=== PATIENT | male | born 1955 | race Caucasian/White ===

== ENCOUNTER → 2020-03-21 13:48 | Outpatient (CLI) | payer SELFPAY | PROVIDERS: PCP Family Medicine; Referring Provider Family Medicine; Visit Provider Family Medicine | DX: E78.5 Hyperlipidemia, unspecified (principal) | CPT/HCPCS: 36415 ==

== ENCOUNTER → 2020-05-25 13:13 | Outpatient (CLI) | payer SELFPAY | LOC: LAB.FUTURE 13:19 → LAB 13:21 | PROVIDERS: PCP Family Medicine; Visit Provider Family Medicine | DX: Z51.81 Encounter for therapeutic drug level monitoring (principal) | CPT/HCPCS: 36415 ==

== ENCOUNTER → 2020-10-31 14:38 | Outpatient (CLI) | payer MEDICAID, SELFPAY | PROVIDERS: PCP Family Medicine; Referring Provider Family Medicine; Visit Provider Family Medicine | DX: Z00.00 Encounter for general adult medical examination without abnormal findings (principal); R03.0 Elevated blood-pressure reading, without diagnosis of hypertension; E78.5 Hyperlipidemia, unspecified; Z12.5 Encounter for screening for malignant neoplasm of prostate; Z51.81 Encounter for therapeutic drug level monitoring | CPT/HCPCS: 36415 ==

== ENCOUNTER 2020-12-19 20:46 | Observation (INO) | payer MEDICAID, SELFPAY ==
[2020-12-19 20:48] VITALS: BP 135/88; PULSE 70; RESP 14; TEMP 36.8; O2SAT 95; BMI 25.8
--- NOTE | 2020-12-19 21:00 | CT_ITS ---
STUDY: CT ABDOMEN AND PELVIS WITH CONTRAST REASON FOR EXAM: Male, 65 years old. Sudden onset of right-sided abdominal pain. RADIATION DOSAGE (If Supplied By Facility): CTDIvol = ( 13.56 ) mGy, DLP = ( 985.56 ) mGycm TECHNIQUE: Transaxial images were obtained from the dome of the diaphragm to the symphysis pubis without oral contrast. IV 100mL Isovue-300 was administered. Sagittal and coronal images were reconstructed. Individualized dose optimization techniques were used for this CT. COMPARISON: None. FINDINGS: Increased markings at the lung bases suggestive of either atelectasis and/or early infiltrates. Tiny filling defect is seen on the first image of the examination within a vessel in the right lower lobe. This most likely is venous in nature although a CTA of the thorax is recommended if clinically indicated. The visualized portions of the heart are within normal limits. Normal liver. Normal gallbladder and extrahepatic biliary system. Normal spleen. Normal pancreas. Normal bilateral adrenal glands. Normal right kidney. Normal left kidney. Normal visualized stomach. Normal small intestine. There are multiple colonic diverticula consistent with diverticulosis. There is a tubular, thick-walled appendix (>7mm), consistent with acute appendicitis. Increased markings are seen in the surrounding peritoneal fat suggestive of a periappendiceal inflammatory changes. There is scattered atherosclerotic calcification of the abdominal aorta, without a demonstrated aneurysm. Normal inferior vena cava. Normal retroperitoneum. Normal urinary bladder. There are prostatic calcifications. There is a small umbilical hernia containing fat. There are diffuse degenerative changes of the visualized lumbar spine. CT/Abdomen/Pelvis W IV Cont ONLY IMPRESSION: Findings in keeping with acute appendicitis with inflammatory changes in the right lower quadrant and surrounding mesentery. Questionable tiny filling defect in a vessel in the right lower lobe most likely venous in nature although clinical correlation is recommended. Electronically Signed: Leo Mckoy MD at 22:18 EDT , Service support ,
--- NOTE | 2020-12-19 21:01 | EX.ED.DYSGE1 ---
HPI History of Present Illness Chief Complaint: Abd Pain Informant: patient Narrative Narrative: 65-year-old male presents the emergency department with 24-hour history of right-sided abdominal pain. Symptoms began abruptly at 2030 hours 1 hour after eating dinner last night. He denies any nausea or vomiting. He took a couple laxatives today and had a normal bowel movement. He feels bloated. He notes a dull constant pain that occasionally gets worse particularly with movement and hitting bumps in the car ride here. He denies any fever. No prior abdominal surgeries. No colon[facility] in the past [facility] Medical History (Updated 12/19/20 @ 22:[address] Westley Salas DO) Epilepsy High cholesterol Home Medications atorvastatin 20 mg PO QHS 12/19/20 [History Last Taken Unknown] dorzolamide-timolol 1 drp RIGHT EYE BID 12/19/20 [History Last Taken Unknown] phenytoin sodium extended [Dilantin Extended] 400 mg PO QODAY 12/19/20 [History Last Taken Unknown] phenytoin sodium extended [Dilantin Extended] 500 mg PO QODAY 12/19/20 [History Last Taken Unknown] Allergy/AdvReac Type Severity Reaction Status Date / Time BEE Allergy Anaphylaxis Uncoded 12/19/20 20:48 no surgical history Social History (Updated 12/19/20 @ 21:[address] Westley Salas DO) Smoking Status: Former smoker substance use type: does not use ROS ROS ED Constitutional Constitutional ED: Denies chills or weight loss Eyes Eyes: Denies change in vision or diplopia ENT ENT ED: Denies ear pain, rhinorrhea or sore throat Cardiovascular Cardiovascular: Denies chest pain, orthopnea, palpitations or racing heartbeat Respiratory/Chest Respiratory/Chest: Denies cough, dyspnea or orthopnea Gastrointestinal Gastrointestinal: Reports abdominal pain; Denies diarrhea, nausea or vomiting Genitourinary Genitourinary ED: Denies dysuria, hematuria or urinary frequency Musculoskeletal Musculoskeletal: Denies arthralgias or myalgias Integumentary Denies abscess or rash Neurologic Neurologic: Denies headache(s) or weakness Psychiatric Psychiatric: Denies anxiety, depression, suicidal ideation or suicidal thoughts Endocrine Endocrinology: Denies polydipsia, polyphagia or polyuria Allergic/Immunologic Allergic/Immunologic ED: Denies mouth swelling, tongue swelling or urticaria EXAM Physical Exam Const Vital Signs: 12/19/20 20:48 Temperature 98.2 F Temperature Source Temporal Pulse Rate 70 Respiratory Rate 14 Blood Pressure 135/88 H Blood Pressure Mean 103 Pulse Ox 95 Oxygen Delivery Method Room Air Positive well nourished and well developed General Appearance ED: well developed HEENT Reports normocephalic, head/scalp atraumatic and moist mucous membranes Eyes PERRL and EOMs intact bilaterally Neck no lymphadenopathy, supple and no JVD Resp normal respiratory effort and clear to auscultation bilaterally Cardio regular rate, regular rhythm and no murmurs GI Palpation: soft and tender RLQ; Negative for guarding or rebound tenderness present Back/Spine no CVA tenderness and normal ROM Extremity normal to inspection General Extremety ED: Negative for edema General Extremity: Negative for edema Neuro oriented x3 and CN's II-XII intact bilaterally Sensorium / Orientation: alert Motor Exam: strength 5/5 throughout Psych mental status grossly normal Mood & Affect: Negative for depressed or tearful Skin no rashes or lesions noted and no wounds MDM MDM MDM Narrative Medical decision making narrative: Patient's white count is 9. Basic blood work is negative urinalysis negative. CT the abdomen pelvis was obtained which demonstrates acute appendicitis. Patient received Zosyn IV fluids morphine and Zofran. I spoke with our on-call surgeon Dr. Garcia who will be in to evaluate the patient. Lab Data Attestation: I reviewed the patient's lab results. Labs: Laboratory Results - last 24 hr 12/19/20 12/19/20 12/19/20 21:12 21:12 21:12 WBC 9.0 RBC 4.90 Hgb 15.1 Hct 46.1 MCV 94.1 H MCH 30.8 MCHC 32.8 RDW Std Deviation 44.7 H RDW Coeff of Darren 12.8 Plt Count 179 MPV 10.3 Immature Gran % (Auto) 0.300 Neut % (Auto) 64.2 Lymph % (Auto) 24.5 [place] % (Auto) 9.7 Eos % (Auto) 1.0 Baso % (Auto) 0.3 Absolute Neuts (auto) 5.7 Absolute Lymphs (auto) 2.19 Nucleated RBC % 0 Sodium 139 Potassium 3.8 Chloride 108 H Carbon Dioxide 26.0 Anion Gap 5 BUN 13 Creatinine 0.91 Estim Creat Clear Calc 84.68 Est GFR (MDRD) Af Amer 108 Est GFR (MDRD) Non-Af 89 BUN/Creatinine Ratio 14.3 Glucose 110 H Calcium 8.6 Total Bilirubin 0.60 AST 20 ALT 35 Alkaline Phosphatase 101 Total Protein 7.3 Albumin 3.7 Globulin 3.6 Albumin/Globulin Ratio 1.0 Lipase 93 Urine Color Yellow Urine Clarity Clear Urine pH 6.0 Ur Specific [place] 1.015 Urine Protein 15 H Urine Glucose (UA) Normal Urine Ketones Negative Urine Occult Blood 150 H Urine Nitrite Negative Urine Bilirubin Negative Urine Urobilinogen Normal Ur Leukocyte Esterase 25 H Urine RBC 0-5 SEEN Urine WBC 0 SEEN Ur Squamous Epith Cells 0 SEEN Urine Bacteria 1+ Urine Mucus 2+ Discharge Plan Dx/Rx/DC Orders Clinical Impression: Acute appendicitis Disposition Disposition: Acute Care Hospital [facility]
[2020-12-19] MEDS: 0.9% Normal Saline 1,000 ML 125 ML IV (21:12)
[2020-12-19] MEDS: Ondansetron 4 MG/2 ML Vial IV (21:12)
[2020-12-19] MEDS: Morphine 4 MG/ML Syringe IV (21:12)
[2020-12-19 21:17] LABS: Squamous Epithelial Cells - UA 0 SEEN /hpf (0-5); White Blood Cells 0 SEEN /hpf (0-5)
[2020-12-19 21:19] LABS: Absolute Lymphocyte Count 2.19 X10^3/uL (0.83-4.51); Absolute Neutrophil Count 5.7 X10^3/uL (2.0-7.7); Basophil# 0.03 X10^3/uL; Basophil% 0.3 % (0-1); Eosinophil# 0.09 X10^3/uL; Hematocrit 46.1 % (40-54); Hemoglobin 15.1 g/dL (13.0-16.5); Lymphocyte # 2.19 X10^3/ul (0.83-4.51); Lymphocyte % 24.5 % (19-41); Mean Corp Hgb Conc 32.8 g/dL (32-36); Mean Corpuscular Hgb 30.8 pg (27.0-32.0); Mean Corpuscular Volume 94.1 fL (80-94); Mean Platelet Vol. 10.3 fl (6.2-12.0); Monocyte# 0.87 X10^3/uL; Monocyte% 9.7 % (0-10); NRBC Flagged by Analyzer 0 % (0-5); Neutrophil # 5.74 X10^3/uL (2.7-7.7); Neutrophil % 64.2 % (47-70); Platelet Count 179 K/mm3 (150-450); RBC Distribution Width CV 12.8 % (11.6-14.6); RBC Distribution Width SD 44.7 fl (35.1-43.9)
[2020-12-19 21:22] LABS: Color, Urine Yellow (Yellow); Glucose, Dipstick Normal (Normal); Ketone-Dipstick Negative (Negative); Leukocyte Esterase-Dipstick 25 /ul (Negative); Nitrite-Dipstick Negative (Negative); Occult Blood-Urine 150 /ul (Negative); Protein-Dipstick 15 mg/dl (Negative); Specific Gravity, Urine 1.015 (1.002-1.030); Urine Bilirubin Dipstick Negative (Negative); Urine Clarity Clear (Clear); Urine Urobilinogen Normal (Normal)
[2020-12-19 21:29] LABS: Bacteria 1+ /hpf (None Seen); Mucous, Urine 2+ /hpf (<or=2+); Red Blood Cells-Urine 0-5 SEEN /hpf (0-5)
[2020-12-19 21:35] LABS: AST(SGOT) 20 U/L (15-37); Alanine Aminotransfer ALT/SGPT 35 U/L (16-61); Albumin, Serum 3.7 g/dL (3.2-5.0); Alkaline Phosphatase 101 U/L (45-117); Anion Gap 5 (5-15); BUN 13 mg/dL (7-18); BUN/Creat Ratio 14.3 RATIO (10-20); Calcium,Total 8.6 mg/dL (8.5-10.1); Chloride 108 mmol/L (98-107); Creatinine, Serum 0.91 mg/dL (0.70-1.30); EST Glomerular Filtration Rate 89 mL/min (>60); Est Glom Filt Rate - Afr Amer 108 mL/min (>60); Estimated Creatinine Clearance 84.68 ml/min; Globulin 3.6 g/dL (2.2-4.2); Glucose 110 mg/dL (74-106); Lipase 93 U/L (73-393); Potassium 3.8 mmol/L (3.5-5.1); Protein, Total 7.3 g/dL (6.4-8.2); Sodium Level 139 mmol/L (136-145)
--- NOTE | 2020-12-19 22:34 | EKG12_ITS ---
Test Reason : PRE OP Blood Pressure : / mmHG Vent. Rate : 079 BPM Atrial Rate : 079 BPM P-R Int : 154 ms QRS Dur : 082 ms QT Int : 354 ms P-R-T Axes : 047 009 030 degrees QTc Int : 405 ms Normal sinus rhythm Possible Left atrial enlargement Left ventricular hypertrophy Nonspecific ST abnormality Abnormal ECG Confirmed by LAURIE MARI, ANITA ([id number]), editorial manager JANNIE RAYMUNDO ([id number]) on 12/21/2020 9:53:15 AM Referred By: HARSH Confirmed By:ANITA SULLIVAN MD
--- NOTE | 2020-12-19 22:34 | PCM.HP.STD ---
HPI - General HPI Narrative DAJUAN PUCKETT, is a 65 M who presents with right-sided abdominal pain. He reports the right-sided abdominal pain started approximately 26 hours ago. He is not having any fevers or chills or nausea or vomiting. He reports the pain has been spreading throughout the day. [facility] Medical History (Updated 12/19/20 @ 22:[address] Vincent Garcia MD) Epilepsy High cholesterol Home Medications atorvastatin 20 mg PO QHS 12/19/20 [History Last Taken Unknown] dorzolamide-timolol 1 drp RIGHT EYE BID 12/19/20 [History Last Taken Unknown] phenytoin sodium extended [Dilantin Extended] 400 mg PO QODAY 12/19/20 [History Last Taken Unknown] phenytoin sodium extended [Dilantin Extended] 500 mg PO QODAY 12/19/20 [History Last Taken Unknown] Allergy/AdvReac Type Severity Reaction Status Date / Time BEE Allergy Anaphylaxis Uncoded 12/19/20 20:48 Social History (Updated 12/19/20 @ 21:[address] Westley Salas, DO) Smoking Status: Former smoker substance use type: does not use ROS Constitutional Constitutional: Denies anorexia, chills or fatigue ENT HEENT: Denies abnormal hearing Cardiovascular Cardiovascular: Denies chest pain Respiratory/Chest Respiratory/Chest: Denies cough or dyspnea Gastrointestinal Gastrointestinal: Reports abdominal pain; Denies coffee ground emesis, diarrhea, dysphagia, nausea or vomiting Genitourinary Genitourinary: Denies change in urinary stream Musculoskeletal Musculoskeletal: Denies abnormal gait Integumentary Integumentary: Denies jaundice Neurologic Neurologic: Denies dizziness Psychiatric Psychiatric: Denies anxiety Vital Signs Vital Signs Vital Signs: 12/19/20 20:48 Temperature 98.2 F Temperature Source Temporal Pulse Rate 70 Respiratory Rate 14 Blood Pressure 135/88 H Blood Pressure Mean 103 Pulse Ox 95 Oxygen Delivery Method Room Air Weight Weight: 180 lb Body Mass Index (BMI) 25.8 Physical Exam Const oriented x3 and no apparent distress Eyes PERRL Neck full ROM Resp normal respiratory effort Cardio regular rate and regular rhythm GI soft to palpation Inspection: Negative for abdominal distention Palpation: tender RLQ Back/Spine no CVA tenderness Results Lab / Micro Data Result Diagrams: 12/19/20 21:12 12/19/20 21:12 Labs: Laboratory Results - last 24 hr 12/19/20 21:12: WBC 9.0, RBC 4.90, Hgb 15.1, Hct 46.1, MCV 94.1 H, MCH 30.8, MCHC 32.8, RDW Std Deviation 44.7 H, RDW Coeff of Darren 12.8, Plt Count 179, MPV 10.3, Immature Gran % (Auto) 0.300, Neut % (Auto) 64.2, Lymph % (Auto) 24.5, [place] % (Auto) 9.7, Eos % (Auto) 1.0, Baso % (Auto) 0.3, Absolute Neuts (auto) 5.7, Absolute Lymphs (auto) 2.19, Nucleated RBC % 0 12/19/20 21:12: Sodium 139, Potassium 3.8, Chloride 108 H, Carbon Dioxide 26.0, Anion Gap 5, BUN 13, Creatinine 0.91, Estim Creat Clear Calc 84.68, Est GFR (MDRD) Af Amer 108, Est GFR (MDRD) Non-Af 89, BUN/Creatinine Ratio 14.3, Glucose 110 H, Calcium 8.6, Total Bilirubin 0.60, AST 20, ALT 35, Alkaline Phosphatase 101, Total Protein 7.3, Albumin 3.7, Globulin 3.6, Albumin/Globulin Ratio 1.0, Lipase 93 12/19/20 21:12: Urine Color Yellow, Urine Clarity Clear, Urine pH 6.0, Ur Specific [place] 1.015, Urine Protein 15 H, Urine Glucose (UA) Normal, Urine Ketones Negative, Urine Occult Blood 150 H, Urine Nitrite Negative, Urine Bilirubin Negative, Urine Urobilinogen Normal, Ur Leukocyte Esterase 25 H, Urine RBC 0-5 SEEN, Urine WBC 0 SEEN, Ur Squamous Epith Cells 0 SEEN, Urine Bacteria 1+, Urine Mucus 2+ Radiology Impression Abdomen/Pelvis CT 12/19/20 21:00 IMPRESSION: Findings in keeping with acute appendicitis with inflammatory changes in the right lower quadrant and surrounding mesentery. Questionable tiny filling defect in a vessel in the right lower lobe most likely venous in nature although clinical correlation is recommended. Electronically Signed: Leo Mckoy MD at 22:18 EDT , Service support , Assessment & Plan Assessment/Plan (1) Acute appendicitis: QUALIFIERS: Acute appendicitis type: unspecified acute appendicitis type Qualified Code(s): K35.80 - Unspecified acute appendicitis PLAN: The patient has right-sided abdominal pain that started yesterday. CT shows acute appendicitis. I discussed laparoscopic appendectomy with the patient in detail. I discussed the risks including not limited to bleeding, infection, injury to surrounding organs such as the colon or bladder or small bowel. Patient understands the risks and is willing to proceed with laparoscopic appendectomy. The patient was given antibiotics in the ER. Vincent Garcia MD Pager: [facility] [address] [place] [address], [address] [place] [address] Office:
[2020-12-19 22:50] VITALS: BP 146/81; PULSE 82; RESP 12; TEMP 38.4; O2SAT 94; BMI 25.8
[2020-12-19 23:00] VITALS: BP 146/81; PULSE 81; RESP 16; TEMP 38.4; O2SAT 94
--- NOTE | 2020-12-19 23:30 | APP_PTH ---
PATIENT: DAJUAN PUCKETT LOC: MS3 U#:[id number] AGE/SX: 65/M ROOM: KY317 RE12/20/[address]: Dr. Vincent Garcia MD : [id number] BED: 1 DIS: 12/22/2020 SPEC #: [id number] RECD: 12/20/20 08:47 STATUS: ARMANI BLACKMON #: [id number] CATHERINE: 12/19/20 23:[address]: Vincent Garcia DEPT: SURGICAL PATHOLOGY RECD BY: Juli Vu ENTERED: 12/20/20 09:30 SP TYPE: APPENDIX OTHR DR: Dr. Rashawn Andino MD Tissues: Appendix, NOS Procedures: Surgery Specimen Level III HEADER OPERATION: Laparoscopic appendectomy PRE-OP DIAGNOSIS: Acute appendicitis TISSUE SUBMITTED: Appendix MICROSCOPIC DIAGNOSIS Appendix, appendectomy: Acute appendicitis. Acute serositis. AM:zahida 12/21/2020 MICROSCOPIC DESCRIPTION Slides are reviewed. GROSS DESCRIPTION Received in fixative is one container labeled with the patient's name and designated appendix. The specimen consists of an L-shaped appendix measuring 8 cm in length and up to 0.7 cm in diameter. The attached periappendiceal adipose tissue measures up to 2.5 cm in width. No obvious perforation is identified. The serosal surface is covered with flores, purulent exudate. The lumen contains fecal material. No fecalith is identified. Quarry Supervisor sections are submitted in one cassette. / SJ:zahida 12/20/20 TC:2 CPT: 94196
[2020-12-20] VITALS (12 sets, daily range): BP systolic 106–146; BP diastolic 65–82; PULSE 78–97; RESP 16–18; TEMP 36.3–38.6; O2SAT 90–98; BMI 25.8
[2020-12-20] MEDS: Bupivacaine Mpf 0.5% 30 ML VIAL (00:33)
--- NOTE | 2020-12-20 00:40 | OP.PCM_ITS ---
Problems Associated Problem List Diagnoses (1) Acute appendicitis: Report of Operation Date of Procedure: 12/20/20 Pre-Operative Diagnosis: Acute appendicitis with perforation Post-Operative Diagnosis: Same Surgery/Procedure Performed:: Laparoscopic appendectomy Specimen's removed: Appendix Drains: JOLLY to bulb suction Description of Procedure: The patient was brought into the operating room and general anesthesia was induced. The left arm was tucked and the abdomen was prepped and draped in usual sterile fashion. A small midline incision was made superior to the umbilicus and deepened to the level of the fascia. The fascia was elevated and incised. The peritoneum was also elevated and incised. A finger sweep was performed and a balloon trocar was placed into the abdomen and inflated. The abdomen was insufflated to 15 mmHg and the camera was inserted and the abdomen was inspected for any injuries upon entering the abdomen. There were none. The patient was placed in Trendelenburg position and a 5 mm ports placed in the left lower quadrant and suprapubic areas under direct visualization. Next using atraumatic bowel graspers the appendix was identified. The appendix was grasped and elevated and Enseal was used to take down the mesoappendix. There appeared to be perforation just distal to the base of the appendix. A stapler was used to come across the base of the appendix. The appendix was then placed in Endo Catch bag and removed through the umbilical incision. The staple line was inspected and found to be hemostatic and intact. The pelvis and right lower quadrant were irrigated and suctioned. A 15 mm round drain was placed through the left lower quadrant incision and into the pelvis and the tip was placed over the staple line. It was sutured to the skin using a 3-0 nylon suture. The 2 5 mm ports are removed under direct visualization. The balloon trocar was deflated and removed and all the air was removed from the abdomen. The umbilical incision fascia was closed with an 0 Vicryl [id number] suture. The incisions were then irrigated with saline and dried. Local anesthetic was injected into the incision sites. The skin incisions were then closed with interrupted 4-0 Monocryl suture and Steri- Strips. Drain was placed to bulb suction. Bandages were applied and the patient was awoken and taken to PACU in stable condition. Patient tolerated the procedure well. Admit VTE Documentation VTE Mechan Device Prophylaxis: SCD's
[2020-12-20] MEDS: 0.9% Normal Saline 1,000 ML 100 ML IV ×2 (01:51→17:16)
[2020-12-20] MEDS: Acetaminophen 325 MG Tablet 650 MG PO ×4 (04:13→23:19)
[2020-12-20 05:47] LABS: Absolute Lymphocyte Count 0.75 X10^3/uL (0.83-4.51); Hematocrit 44.5 % (40-54); Hemoglobin 14.6 g/dL (13.0-16.5); Lymphocyte # 0.75 X10^3/ul (0.83-4.51); Lymphocyte % 14.2 % (19-41); Mean Corp Hgb Conc 32.8 g/dL (32-36); Mean Corpuscular Hgb 30.7 pg (27.0-32.0); Mean Corpuscular Volume 93.5 fL (80-94); Mean Platelet Vol. 10.3 fl (6.2-12.0); Monocyte# 0.52 X10^3/uL; Monocyte% 9.8 % (0-10); NRBC Flagged by Analyzer 0 % (0-5); Neutrophil % 75.8 % (47-70); Platelet Count 126 K/mm3 (150-450); RBC Distribution Width CV 12.8 % (11.6-14.6); RBC Distribution Width SD 43.8 fl (35.1-43.9); Red Blood Count 4.76 M/mm3 (4.6-6.2); White Blood Count 5.3 K/mm3 (4.4-11.0)
[2020-12-20 06:02] LABS: Anion Gap 6 (5-15); BUN 10 mg/dL (7-18); BUN/Creat Ratio 11.3 RATIO (10-20); Chloride 109 mmol/L (98-107); Creatinine, Serum 0.88 mg/dL (0.70-1.30); EST Glomerular Filtration Rate 92 mL/min (>60); Est Glom Filt Rate - Afr Amer 111 mL/min (>60); Estimated Creatinine Clearance 87.56 ml/min; Glucose 119 mg/dL (74-106); Potassium 3.6 mmol/L (3.5-5.1); Sodium Level 138 mmol/L (136-145)
[2020-12-20] MEDS: oxyCODONE 5 MG Tablet PO (06:49)
--- NOTE | 2020-12-20 10:54 | PN.SURG_ITS ---
Subjective Subjective Patient reports his pain is much improved since yesterday. No nausea or vomiting. Objective Data Objective Data Vital Signs: Vital Signs Temp Pulse Resp BP Pulse Ox 98.4 F 89 18 106/69 92 12/20/20 09:17 12/20/20 09:17 12/20/20 09:17 12/20/20 09:17 12/20/20 09:17 Oxygen Flow Rate (L/min) 1 Oxygen Delivery Method Nasal Cannula Weight: 180 lb Body Mass Index (BMI) 25.8 Intake & Output: Intake and Output for Last 24 Hours 12/18/20 12/19/20 12/20/20 23:59 23:59 23:59 Intake Total 50 / 50 1632.92 / 1632.92 Output Total 430 / 430 Balance 50 / 50 1202.92 / 1202.92 Lab / Micro Data Result Diagrams: 12/20/20 05:30 12/20/20 05:30 Labs: Laboratory Results - last 24 hr 12/19/20 21:12: WBC 9.0, RBC 4.90, Hgb 15.1, Hct 46.1, MCV 94.1 H, MCH 30.8, MCHC 32.8, RDW Std Deviation 44.7 H, RDW Coeff of Darren 12.8, Plt Count 179, MPV 10.3, Immature Gran % (Auto) 0.300, Neut % (Auto) 64.2, Lymph % (Auto) 24.5, [place] % (Auto) 9.7, Eos % (Auto) 1.0, Baso % (Auto) 0.3, Absolute Neuts (auto) 5.7, Absolute Lymphs (auto) 2.19, Nucleated RBC % 0 12/19/20 21:12: Sodium 139, Potassium 3.8, Chloride 108 H, Carbon Dioxide 26.0, Anion Gap 5, BUN 13, Creatinine 0.91, Estim Creat Clear Calc 84.68, Est GFR (MDRD) Af Amer 108, Est GFR (MDRD) Non-Af 89, BUN/Creatinine Ratio 14.3, Glucose 110 H, Calcium 8.6, Total Bilirubin 0.60, AST 20, ALT 35, Alkaline Phosphatase 101, Total Protein 7.3, Albumin 3.7, Globulin 3.6, Albumin/Globulin Ratio 1.0, Lipase 93 12/19/20 21:12: Urine Color Yellow, Urine Clarity Clear, Urine pH 6.0, Ur Specific [place] 1.015, Urine Protein 15 H, Urine Glucose (UA) Normal, Urine Ketones Negative, Urine Occult Blood 150 H, Urine Nitrite Negative, Urine Bilirubin Negative, Urine Urobilinogen Normal, Ur Leukocyte Esterase 25 H, Urine RBC 0-5 SEEN, Urine WBC 0 SEEN, Ur Squamous Epith Cells 0 SEEN, Urine Bacteria 1+, Urine Mucus 2+ 12/20/20 05:30: WBC 5.3, RBC 4.76, Hgb 14.6, Hct 44.5, MCV 93.5, MCH 30.7, MCHC 32.8, RDW Std Deviation 43.8, RDW Coeff of Darren 12.8, Plt Count 126 L, MPV 10.3, Immature Gran % (Auto) 0.200, Neut % (Auto) 75.8 H, Lymph % (Auto) 14.2 L, [place] % (Auto) 9.8, Eos % (Auto) 0.0, Baso % (Auto) 0.0, Absolute Neuts (auto) 4.0, Absolute Lymphs (auto) 0.75 L, Nucleated RBC % 0 12/20/20 05:30: Sodium 138, Potassium 3.6, Chloride 109 H, Carbon Dioxide 23.0, Anion Gap 6, BUN 10, Creatinine 0.88, Estim Creat Clear Calc 87.56, Est GFR (MDRD) Af Amer 111, Est GFR (MDRD) Non-Af 92, BUN/Creatinine Ratio 11.3, Glucose 119 H, Calcium 8.0 L Micro: Microbiology 12/19/20 22:24 Mucosa - Nose SARS-CoV-2 Antigen (Rapid) - Final Radiography Diagnostic Testing: Radiology Impression Abdomen/Pelvis CT 12/19/20 21:00 IMPRESSION: Findings in keeping with acute appendicitis with inflammatory changes in the right lower quadrant and surrounding mesentery. Questionable tiny filling defect in a vessel in the right lower lobe most likely venous in nature although clinical correlation is recommended. Electronically Signed: Leo Mckoy MD at 22:18 EDT , Service support , Physical Exam Const oriented x3 and no apparent distress Resp normal respiratory effort GI soft to palpation Inspection: Negative for abdominal distention Assessment & Plan Assessment/Plan (1) Acute appendicitis: QUALIFIERS: Acute appendicitis type: unspecified acute appendicitis type Qualified Code(s): K35.80 - Unspecified acute appendicitis PLAN: Patient is improving after laparoscopic appendectomy. Drain is in place and draining serosanguineous fluid. He was started on clear liquids last night and will continue clear liquids until passing flatus. Continue antibi otics. Vincent Garcia MD Pager: [facility] [address] [place] [address] [place] [address] Office:
--- NOTE | 2020-12-20 13:23 | CPS ---
started by nursing
[2020-12-20] MEDS: Atorvastatin Calcium 20 MG Tablet PO (21:46)
[2020-12-21 00:01] VITALS: TEMP 38.3
[2020-12-21 01:09] VITALS: TEMP 37.8
[2020-12-21 03:15] VITALS: BP 138/78; PULSE 89; RESP 16; TEMP 36.9; O2SAT 96
[2020-12-21] MEDS: oxyCODONE 5 MG Tablet PO ×2 (04:48→13:27)
[2020-12-21 08:07] LABS: Absolute Lymphocyte Count 1.07 X10^3/uL (0.83-4.51); Absolute Neutrophil Count 6.4 X10^3/uL (2.0-7.7); Basophil# 0.02 X10^3/uL; Basophil% 0.2 % (0-1); Eosinophil# 0.01 X10^3/uL; Eosinophils% 0.1 % (0-5); Hematocrit 44.9 % (40-54); Hemoglobin 14.9 g/dL (13.0-16.5); Lymphocyte # 1.07 X10^3/ul (0.83-4.51); Lymphocyte % 13.3 % (19-41); Mean Corp Hgb Conc 33.2 g/dL (32-36); Mean Corpuscular Hgb 30.9 pg (27.0-32.0); Mean Corpuscular Volume 93.2 fL (80-94); Mean Platelet Vol. 10.4 fl (6.2-12.0); Monocyte# 0.49 X10^3/uL; Monocyte% 6.1 % (0-10); NRBC Flagged by Analyzer 0 % (0-5); Neutrophil # 6.37 X10^3/uL (2.7-7.7); Neutrophil % 78.9 % (47-70); Platelet Count 125 K/mm3 (150-450); RBC Distribution Width SD 44.7 fl (35.1-43.9); Red Blood Count 4.82 M/mm3 (4.6-6.2); White Blood Count 8.1 K/mm3 (4.4-11.0)
[2020-12-21 08:16] LABS: Anion Gap 10 (5-15); BUN 12 mg/dL (7-18); BUN/Creat Ratio 12.5 RATIO (10-20); Calcium,Total 8.2 mg/dL (8.5-10.1); Chloride 105 mmol/L (98-107); Creatinine, Serum 0.96 mg/dL (0.70-1.30); EST Glomerular Filtration Rate 83 mL/min (>60); Est Glom Filt Rate - Afr Amer 101 mL/min (>60); Estimated Creatinine Clearance 80.27 ml/min; Glucose 130 mg/dL (74-106); Sodium Level 138 mmol/L (136-145)
[2020-12-21 08:23] VITALS: BP 127/77; PULSE 99; RESP 16; TEMP 36.8; O2SAT 93
[2020-12-21] MEDS: Phenytoin Na 100 MG Capsule 400 MG PO (08:36)
[2020-12-21] MEDS: Acetaminophen 325 MG Tablet 650 MG PO ×3 (08:43→22:01)
--- NOTE | 2020-12-21 09:38 | PN.SURG_ITS ---
Subjective Subjective Patient reports that he is passing a little bit of flatus. He is still having some abdominal pain but no nausea or vomiting. He says he felt febrile overnight but objectively he did not have a fever. Objective Data Objective Data Vital Signs: Vital Signs Temp Pulse Resp BP Pulse Ox 98.2 F 99 16 127/77 H 93 12/21/20 08:23 12/21/20 08:23 12/21/20 08:23 12/21/20 08:23 12/21/20 08:23 Oxygen Flow Rate (L/min) 1 Oxygen Delivery Method Room Air Weight: 180 lb Body Mass Index (BMI) 25.8 Intake & Output: Intake and Output for Last 24 Hours 12/19/20 12/20/20 12/21/20 23:59 23:59 23:59 Intake Total 50 / 50 3841.26 / 4541.26 2348.33 / 2348.33 Output Total 1208 / 1808 1070 / 1070 Balance 50 / 50 2633.26 / 2733.26 1278.33 / 1278.33 Lab / Micro Data Result Diagrams: 12/21/20 07:56 12/21/20 07:56 Labs: Laboratory Results - last 24 hr 12/21/20 07:56: WBC 8.1, RBC 4.82, Hgb 14.9, Hct 44.9, MCV 93.2, MCH 30.9, MCHC 33.2, RDW Std Deviation 44.7 H, RDW Coeff of Darren 13.0, Plt Count 125 L, MPV 10.4, Immature Gran % (Auto) 1.400 H, Neut % (Auto) 78.9 H, Lymph % (Auto) 13.3 L, [place] % (Auto) 6.1, Eos % (Auto) 0.1, Baso % (Auto) 0.2, Absolute Neuts (auto) 6.4, Absolute Lymphs (auto) 1.07, Nucleated RBC % 0 12/21/20 07:56: Sodium 138, Potassium 4.0, Chloride 105, Carbon Dioxide 23.0, Anion Gap 10, BUN 12, Creatinine 0.96, Estim Creat Clear Calc 80.27, Est GFR (MDRD) Af Amer 101, Est GFR (MDRD) Non-Af 83, BUN/Creatinine Ratio 12.5, Glucose 130 H, Calcium 8.2 L Micro: Microbiology 07/27/21 22:24 Mucosa - Nose SARS-CoV-2 Antigen (Rapid) - Final Physical Exam Const oriented x3 and no apparent distress Cardio regular rate and regular rhythm GI soft to palpation Palpation: tender RLQ Assessment & Plan Assessment/Plan (1) Acute appendicitis: QUALIFIERS: Acute appendicitis type: unspecified acute appendicitis type Qualified Code(s): K35.80 - Unspecified acute appendicitis PLAN: Patient's drain is not putting much out. It still appears serosanguineous. The patient started passing some flatus now advance him to full liquid diet and advance as tolerated regular diet. Continue antibiotics. Vincent Garcia MD Pager: [facility] [address] [place] [address] [address] [place] [address] Office:
--- NOTE | 2020-12-21 15:23 | CASEMGMT ---
MARTINEZ FARRIS Assessment: Face to Face with pt for initial transition planning/care coordination assessment. RN KALEIGH introduced self and role at [facility], pt voices understanding and consents to assessment. Pt is A/O x4 and answers all questions appropriately at this time. Pt sitting up in chair in no distress. Care providers, pharmacy, and demographics verified/updated. Admitting Dx: API PCP:Sina Specialists:Pt denies having any specialists. Preferred Pharmacy: [facility] Insurance: [email or web address] Prescription Benefit: yes LW/HPOA: Pt states he has a LW/DPOA and his DPOA is his Leonora Renae. He is aware that it is not on file at [facility] and he may bring in at any time to be scanned into his chart. LNOK: Leonora Renae, Living Arrangements: Pt lives with in a two story house with 3 steps to enter with a rail. Pt is I in ADL's and denies concerns at home. Transportation: Pt drives self and denies concerns with transportation. DME/HHC/SNF: Pt has a walker and cane at home but does not use. He has no hx of HHC or SNF stays. Pt states no concerns with going home at time of dc. Pt states no further concerns/needs. CM to follow. Advised pt to ask CM if any further question/concerns/needs arise, voices understanding. Pt Goal: Home Plan: Home with support.
[2020-12-21] MEDS: Atorvastatin Calcium 20 MG Tablet PO (21:02)
[2020-12-21 21:12] VITALS: BP 120/76; PULSE 87; RESP 16; TEMP 36.9; O2SAT 94
[2020-12-22] MEDS: oxyCODONE 5 MG Tablet PO ×2 (00:25→06:03)
[2020-12-22 03:12] VITALS: BP 110/63; PULSE 79; RESP 16; TEMP 37.1; O2SAT 95
[2020-12-22] MEDS: Acetaminophen 325 MG Tablet 650 MG PO (06:03)
--- NOTE | 2020-12-22 07:44 | DS.PCM_ITS ---
Providers Date of Admission: 12/21/20 Primary Care Physician: Dr. Rashawn Andino MD Reason For Visit: API Diagnosis Discharge Diagnosis (1) Acute appendicitis: Status: Acute Code(s): K35.80 - Unspecified acute appendicitis Qualifiers: Acute appendicitis type: unspecified acute appendicitis type Qualified Code(s): K35.80 - Unspecified acute appendicitis Medications at Discharge Home Medications atorvastatin 20 mg PO QHS 12/19/20 dorzolamide-timolol 1 drp RIGHT EYE BID 12/19/20 phenytoin sodium extended [Dilantin Extended] 400 mg PO QODAY 12/19/20 phenytoin sodium extended [Dilantin Extended] 500 mg PO QODAY 12/19/20 acetaminophen [Tylenol] 650 mg PO Q4H PRN PRN #0 tab 12/22/20 amoxicillin-pot clavulanate [Augmentin] 1 tab PO BID #14 tab 12/22/20 docusate sodium [DOK] 100 mg PO BID #10 cap 12/22/20 oxycodone 5 - 10 mg PO Q4H PRN PRN 7 Days #30 tab 12/22/20 Hospital Course Summary of Care Provided Hospital Course: Patient was admitted with right lower quadrant pain and CT scan showed appendicitis. The patient had perforated appendicitis and a drain was placed during surgery and the patient was admitted to the floor postoperatively. He was kept on antibiotics until he started passing flatus and the started on a clear liquid diet and advanced. Drain was removed once the patient was thaddeus erating a diet with no change in the drain fluid consistency. Once patient was tolerating regular diet he was discharged home. Physical Exam Const oriented x3 and no apparent distress Resp normal respiratory effort Cardio regular rate and regular rhythm GI soft to palpation Inspection: Negative for abdominal distention Palpation: tender RLQ Weight / BMI Weight Weight: 180 lb Body Mass Index (BMI) 25.8 ABG / Lab / Microbiology Data Result Diagrams: 12/21/20 07:56 12/21/20 07:56 Laboratory: Laboratory Results - last 24 hr 12/21/20 07:56: WBC 8.1, RBC 4.82, Hgb 14.9, Hct 44.9, MCV 93.2, MCH 30.9, MCHC 33.2, RDW Std Deviation 44.7 H, RDW Coeff of Darren 13.0, Plt Count 125 L, MPV 10.4, Immature Gran % (Auto) 1.400 H, Neut % (Auto) 78.9 H, Lymph % (Auto) 13.3 L, [place] % (Auto) 6.1, Eos % (Auto) 0.1, Baso % (Auto) 0.2, Absolute Neuts (auto) 6.4, Absolute Lymphs (auto) 1.07, Nucleated RBC % 0 12/21/20 07:56: Sodium 138, Potassium 4.0, Chloride 105, Carbon Dioxide 23.0, Anion Gap 10, BUN 12, Creatinine 0.96, Estim Creat Clear Calc 80.27, Est GFR (MDRD) Af Amer 101, Est GFR (MDRD) Non-Af 83, BUN/Creatinine Ratio 12.5, Glucose 130 H, Calcium 8.2 L Microbiology: Microbiology 12/19/20 22:24 Mucosa - Nose SARS-CoV-2 Antigen (Rapid) - Final D/C Instructions Discharge Diet: Light diet - advance as tolerated Discharge Activity: May Not Drive (for 2-3 days or while taking narcotic pain medications.) and May Shower Lifting Restrictions: 20 lbs for 2 weeks Call your doctor if your incision/area has: Continuous Slow Oozing, Sudden Increased Bleeding, Increased Pain/ Swelling, Increased Redness and Foul Smell ing Discharge Call your doctor if you observe: Fever of 101 or Higher Suture Line Care: Avoid Pulling/Pushing and Avoid Pinching/Bending Cleanse incision/area with: Soap & Water Additional Dressing/Incision Instructions: Keep dressing clean and dry. Change or remove dressing in 2 days. Leave steri strips for 1 week. May protect with a gauze bandaid. Please Follow Up With: Vincent Garcia MD When: Please call to schedule 1 week follow up appointment. [phone] Meaningful Use Info Meaningful Use Diagnoses (Choose all that apply): None applicable Discharge Plan Admission Admit Date/Time: 12/21/20 00:01 Attending Provider: Vincent Garcia Primary Care Provider: Rashawn Andino Discharge Orders/Prescriptions Prescriptions: New acetaminophen [Tylenol] 325 mg Tablet 650 mg PO Q4H PRN PRN (Reason: pain 1-10/fever) Qty: 0 RF: 0 docusate sodium [DOK] 100 mg Capsule 100 mg PO BID Qty: 10 RF: 0 oxycodone 5 mg Tablet 5 - 10 mg PO Q4H PRN PRN (Reason: Pain Score 4-10) 7 Days Qty: 30 RF: 0 amoxicillin-pot clavulanate [Augmentin] 875-125 mg tablet 1 tab PO BID Qty: 14 RF: 0 Continued atorvastatin 20 mg Tablet 20 mg PO QHS RF: 0 phenytoin sodium extended [Dilantin Extended] 100 mg Capsule 500 mg PO QODAY RF: 0 phenytoin sodium extended [Dilantin Extended] 100 mg Capsule 400 mg PO QODAY RF: 0 dorzolamide-timolol 22.3-6.8 mg/mL Drops 1 drp RIGHT EYE BID RF: 0 Referrals / Follow Up: Rashawn Andino MD [Primary Care Provider] - Disposition Disposition (needs filled in before D/C Order can be placed): Home, Self Care
[2020-12-22] MEDS: Phenytoin Na 100 MG Capsule 500 MG PO (07:57)
[2020-12-22] MEDS: Docusate Sodium 100 MG Capsule PO (07:59)
[2020-12-22 08:36] VITALS: BP 123/76; PULSE 59; RESP 16; TEMP 37.4; O2SAT 93
--- NOTE | 2020-12-22 10:17 | NURSING ---
home medications given to to take home.
[2020-12-22 11:58] VITALS: BP 110/70; PULSE 76; RESP 16; TEMP 36.9; O2SAT 94
--- NOTE | 2020-12-22 12:21 | CASEMGMT ---
Social Work Note SW received referral that pt had questions regarding Payment Plans for Hospital Bill. SW in to speak with pt. SW informed pt that this worker doesn't know about Payment Plans and pt should really talk to Patient Financial Services. SW provided pt with patient financial services information and number. SW did provide pt with HCAP application. SW informed pt that this worker will have Patient Financial Services call pt to discuss services. Pt states understanding. SW placed a call to Amberly in PFS and left message requesting [facility] call pt. Amberly Jennings [employer] DEVELOPER, OSTEOLOGIST
== END 2020-12-22 12:41 | disposition home or self-care (01) | DRG 340 ==
LOC: ED 22:12 → SDC 22:37 → MS3 22:43 → SDC 12-20 01:04 → MS3 12-20 01:04
PROVIDERS: Admitting Provider Surgery; Emergency Provider Emergency Medicine; PCP Family Medicine; Visit Provider Surgery
PROC: 0DTJ4ZZ Resection of Appendix, Percutaneous Endoscopic Approach (ICD-10-PCS; CPT 44970; principal; 2020-12-19 23:30)
DX: K35.80 Unspecified acute appendicitis (principal); G40.909 Epilepsy, unspecified, not intractable, without status epilepticus; E78.00 Pure hypercholesterolemia, unspecified; Z79.899 Other long term (current) drug therapy; Z87.891 Personal history of nicotine dependence; R93.1 Abnormal findings on diagnostic imaging of heart and coronary circulation
CPT/HCPCS: 44970; 36415; 74177; 80048; 80053; 81001; 83690; 85025; 87426; 88304; 93005; 96365; 96366; 96375; 99218; 99251; 99284; J7030; Q9967; C1760; G0378; G0463; J2405

== ENCOUNTER 2021-01-01 09:14 | Inpatient (IN) | payer MEDICAID, SELFPAY ==
[2020-12-20 01:31] VITALS: BMI 25.8
[2021-01-01 09:15] VITALS: BP 112/80; PULSE 81; RESP 16; TEMP 36.4; O2SAT 96; BMI 24.5
[2021-01-01 09:18] VITALS: BP 112/80; PULSE 81; RESP 16; TEMP 36.4; O2SAT 96
--- NOTE | 2021-01-01 09:40 | ED.VIS.GI ---
HPI HPI - GI History of Present Illness Chief Complaint: Abd Pain Informant: patient and spouse/S.O. Abdominal Pain/Flank Pain Onset: Days (3-4) Context: Gradual Onset Timing: Continuous Quality: Aching Location: - (R abd) Current Severity: Mild Maximum Severity: Moderate Worsened by: Nothing Relieved by: Nothing Nausea/Vomiting/Emesis GI Symptom: Negative for Nausea and Vomiting Diarrhea/Melena/Hematochezia GI Symptom: Positive for Diarrhea; Negative for Melena and Hematochezia Stool Quality: Positive for Watery; Negative for Black, Maroon and BRB per rectum Associated Symptoms Associated Symptoms: Negative for Dysuria, Frequency and Hematuria Narrative Narrative: Patient had a perforated appendix and had a laparoscopic appendectomy about 2 weeks ago. He was on postoperative antibiotics that he just finished 2 or 3 days ago; for the past 3 or 4 days he has been having intermittent fevers up to 101, development of right-sided abdominal pain that he really did not have postoperatively, and anorexia. He is drinking water and urinating without any difficulty. He called the office this morning and was referred here for CT scan to rule out an abscess. [facility] Medical History (Updated 01/01/21 @ 13:[address] Shukri Jones MD) Epilepsy Glaucoma High cholesterol Home Medications atorvastatin 20 mg PO QHS 12/19/20 [History Last Taken Unknown] dorzolamide-timolol 1 drp RIGHT EYE BID 12/19/20 [History Last Taken Unknown] phenytoin sodium extended [Dilantin Extended] 400 mg PO QODAY 12/19/20 [History Last Taken Unknown] phenytoin sodium extended [Dilantin Extended] 500 mg PO QODAY 12/19/20 [History Last Taken Unknown] acetaminophen [Tylenol] 650 mg PO Q4H PRN PRN #0 tab 12/22/20 [Rx Last Taken Unknown] docusate sodium [DOK] 100 mg PO BID #10 cap 12/22/20 [Rx Last Taken Unknown] oxycodone 5 - 10 mg PO Q4H PRN PRN 7 Days #30 tab 12/22/20 [Rx Last Taken Unknown] Allergy/AdvReac Type Severity Reaction Status Date / Time bee venom protein (honey bee) Allergy Anaphylaxis Verified 01/01/21 09:50 Surgical History (Updated 01/01/21 @ 09:[address] Vincent Garcia MD) S/P appendectomy Social History Smoking Status: Former smoker substance use type: does not use ROS ROS ED Constitutional Constitutional ED: Reports chills, fever(s) and malaise Eyes Eyes: Denies change in vision or diplopia ENT ENT ED: Denies rhinorrhea or sore throat Cardiovascular Cardiovascular: Denies chest pain or palpitations Respiratory/Chest Respiratory/Chest: Denies cough or dyspnea Gastrointestinal Gastrointestinal: Reports as per HPI, abdominal pain and diarrhea; Denies nausea or vomiting Genitourinary Genitourinary ED: Denies dysuria or hematuria Musculoskeletal Musculoskeletal: Denies back pain or neck pain Integumentary Denies abscess or rash Neurologic Neurologic: Denies headache(s), paresthesias or weakness Psychiatric Psychiatric: Denies anxiety or suicidal thoughts EXAM Physical Exam Const Vital Signs: 01/01/21 09:15 01/01/21 09:18 01/01/21 12:10 Temperature 97.6 F L 97.6 F L 98.8 F Temperature Source Temporal Temporal Temporal Pulse Rate 81 81 80 Respiratory Rate 16 16 16 Blood Pressure 112/80 112/80 132/76 H Blood Pressure Mean 90 90 94 Pulse Ox 96 96 97 Oxygen Delivery Method Room Air Room Air Room Air Positive well nourished and well developed General Appearance ED: well developed and NAD HEENT Reports moist mucous membranes normocephalic and atraumatic Eyes PERRL and EOMs intact bilaterally Neck full ROM and supple Resp normal respiratory effort and clear to auscultation bilaterally Cardio regular rate, regular rhythm and no murmurs GI non-distended GI Narrative: Very mildly tender from the right mid abdomen through the right lower quadrant, no guarding or rebound tenderness or tenderness elsewhere. No rebound tenderness. Abdomen very soft. No palpable mass. Well-healing laparoscopic surgical incisions without signs of dehiscence or infection or drainage. Auscultation: normoactive bowel sounds Palpation: soft Back/Spine no CVA tenderness General Back: other FROM Extremity normal to inspection General Extremety ED: Negative for edema, pulses abnormal or tenderness General Extremity: Negative for edema or pulses abnormal Neuro oriented x3, CN's II-XII intact bilaterally and no sensory deficits noted Sensorium / Orientation: awake and alert Motor Exam: strength 5/5 throughout Skin no rashes or lesions noted and no wounds MDM MDM MDM Narrative Medical decision making narrative: Labs and CT obtained, discussed with Dr. Garcia to obtain an oral and IV contrasted study, and as below it shows suspicion for an infectious collection in the liver with maximum diameter 10 cm. Discussed with surgery, Zosyn requested, and admission for further evaluation and management. Lab Data Attestation: I reviewed the patient's lab results. Labs: Laboratory Results - last 24 hr 01/01/21 01/01/21 01/01/21 10:00 10:00 10:00 WBC 12.0 H RBC 4.61 Hgb 14.0 Hct 42.1 MCV 91.3 MCH 30.4 MCHC 33.3 RDW Std Deviation 42.7 RDW Coeff of Darren 12.7 Plt Count 616 H MPV 9.5 Immature Gran % (Auto) 0.700 Neut % (Auto) 78.7 H Lymph % (Auto) 10.7 L [place] % (Auto) 9.5 Eos % (Auto) 0.2 Baso % (Auto) 0.2 Absolute Neuts (auto) 9.5 H Absolute Lymphs (auto) 1.28 Nucleated RBC % 0 Sodium 134 L Potassium 3.6 Chloride 101 Carbon Dioxide 24.0 Anion Gap 9 BUN 12 Creatinine 0.78 Estim Creat Clear Calc 98.79 Est GFR (MDRD) Af Amer 129 Est GFR (MDRD) Non-Af 106 BUN/Creatinine Ratio 15.4 Glucose 102 Lactic Acid 1.1 Calcium 8.9 Urine Color Urine Clarity Urine pH Ur Specific [place] Urine Protein Urine Glucose (UA) Urine Ketones Urine Occult Blood Urine Nitrite Urine Bilirubin Urine Urobilinogen Ur Leukocyte Esterase Urine RBC Urine WBC Ur Squamous Epith Cells Urine Bacteria Urine Mucus 01/01/21 10:30 WBC RBC Hgb Hct MCV MCH MCHC RDW Std Deviation RDW Coeff of Darren Plt Count MPV Immature Gran % (Auto) Neut % (Auto) Lymph % (Auto) [place] % (Auto) Eos % (Auto) Baso % (Auto) Absolute Neuts (auto) Absolute Lymphs (auto) Nucleated RBC % Sodium Potassium Chloride Carbon Dioxide Anion Gap BUN Creatinine Estim Creat Clear Calc Est GFR (MDRD) Af Amer Est GFR (MDRD) Non-Af BUN/Creatinine Ratio Glucose Lactic Acid Calcium Urine Color Yellow Urine Clarity Sl. Cloudy Urine pH 6.0 Ur Specific [place] 1.010 Urine Protein 30 H Urine Glucose (UA) Normal Urine Ketones 15 H Urine Occult Blood 50 H Urine Nitrite Negative Urine Bilirubin Negative Urine Urobilinogen Normal Ur Leukocyte Esterase 25 H Urine RBC 0-5 SEEN Urine WBC 0-5 SEEN Ur Squamous Epith Cells 0-5 SEEN Urine Bacteria 0 SEEN Urine Mucus 0 SEEN Radiography Diagnostic Testing: Radiology Impression Abdomen/Pelvis CT 01/01/21 09:53 IMPRESSION: There is a 6.9 cm x 7.1 cm x 10.1 cm well-circumscribed hypodense mass in the inferior medial aspect of the right lobe of the liver. Small amount of air is seen within the suggestive of a localized hepatic abscess. Increased markings are also seen in the surrounding peritoneal fat. The patient is status post appendectomy with a mild residual postsurgical changes seen in the surrounding peritoneal fat. Electronically Signed: Leo Mckoy MD at 12:44 EDT , Service support , Discharge Plan Dx/Rx/DC Orders Clinical Impression: Abscess, hepatic Disposition Disposition: Acute Care Hospital [facility]
--- NOTE | 2021-01-01 09:53 | CT_ITS ---
STUDY: CT ABDOMEN AND PELVIS WITH CONTRAST REASON FOR EXAM: Male, 65 years old. R abd pain, fever, recent appendectomy RADIATION DOSAGE (If Supplied By Facility): CTDIvol = ( 12.10 ) mGy, DLP = ( 957.09 ) mGycm TECHNIQUE: Transaxial images were obtained from the dome of the diaphragm to the symphysis pubis with oral contrast. Oral and amp; IV Gastrografin and amp; 100mL Isovue-300 was administered. Sagittal and coronal images were reconstructed. Individualized dose optimization techniques were used for this CT. COMPARISON: Comparison is made with prior study dated 12/19/2020. FINDINGS: Increased markings at the right lung base suggestive of right basilar atelectasis. The left lung base is clear. The visualized portions of the heart are within normal limits. There is decreased attenuation of the liver consistent with steatosis. There now is evidence of a 6.9 cm x 7.1 cm x 10.1 cm well-circumscribed hypodense mass in the inferior medial aspect of the right lobe of the liver. Small amount of air is seen within the collection. This most likely represents a localized hepatic abscess. Increased markings are seen in the surrounding peritoneal fat. Normal gallbladder and extrahepatic biliary system. Normal spleen. Normal pancreas. Normal bilateral adrenal glands. Normal right kidney. Normal left kidney. Normal visualized stomach. Normal small intestine. Normal colon. There are surgical clips in the region of the appendix consistent with a prior appendectomy. Mild residual increased markings are seen in the surrounding periappendiceal fat most likely representing postoperative changes. There is scattered atherosclerotic calcification of the abdominal aorta, without a demonstrated aneurysm. Normal inferior vena cava. Normal retroperitoneum. Normal urinary bladder. There are prostatic calcifications. There is a small umbilical hernia containing fat. There are degenerative changes of the visualized lumbar spine. CT/Abdomen/Pelvis WITH Contrast IMPRESSION: There is a 6.9 cm x 7.1 cm x 10.1 cm well-circumscribed hypodense mass in the inferior medial aspect of the right lobe of the liver. Small amount of air is seen within the suggestive of a localized hepatic abscess. Increased markings are also seen in the surrounding peritoneal fat. The patient is status post appendectomy with a mild residual postsurgical changes seen in the surrounding peritoneal fat. Electronically Signed: Leo Mckoy MD at 12:44 EDT , Service support ,
[2021-01-01] MEDS: 0.9% Normal Saline 1,000 ML 999 ML IV (10:06)
[2021-01-01 10:17] LABS: Absolute Lymphocyte Count 1.28 X10^3/uL (0.83-4.51); Absolute Neutrophil Count 9.5 X10^3/uL (2.0-7.7); Basophil# 0.03 X10^3/uL; Basophil% 0.2 % (0-1); Eosinophil# 0.02 X10^3/uL; Eosinophils% 0.2 % (0-5); Hematocrit 42.1 % (40-54); Lymphocyte # 1.28 X10^3/ul (0.83-4.51); Lymphocyte % 10.7 % (19-41); Mean Corp Hgb Conc 33.3 g/dL (32-36); Mean Corpuscular Hgb 30.4 pg (27.0-32.0); Mean Corpuscular Volume 91.3 fL (80-94); Mean Platelet Vol. 9.5 fl (6.2-12.0); Monocyte# 1.14 X10^3/uL; Monocyte% 9.5 % (0-10); NRBC Flagged by Analyzer 0 % (0-5); Neutrophil # 9.46 X10^3/uL (2.7-7.7); Neutrophil % 78.7 % (47-70); Platelet Count 616 K/mm3 (150-450); RBC Distribution Width CV 12.7 % (11.6-14.6); RBC Distribution Width SD 42.7 fl (35.1-43.9); Red Blood Count 4.61 M/mm3 (4.6-6.2)
[2021-01-01 10:35] LABS: Bacteria 0 SEEN /hpf (None Seen); Mucous, Urine 0 SEEN /hpf (<or=2+)
[2021-01-01 10:40] LABS: Color, Urine Yellow (Yellow); Glucose, Dipstick Normal (Normal); Ketone-Dipstick 15 mg/dl (Negative); Leukocyte Esterase-Dipstick 25 /ul (Negative); Nitrite-Dipstick Negative (Negative); Occult Blood-Urine 50 /ul (Negative); Protein-Dipstick 30 mg/dl (Negative); Urine Bilirubin Dipstick Negative (Negative); Urine Clarity Sl. Cloudy (Clear); Urine Urobilinogen Normal (Normal)
[2021-01-01 10:40] LABS: Anion Gap 9 (5-15); BUN 12 mg/dL (7-18); BUN/Creat Ratio 15.4 RATIO (10-20); Calcium,Total 8.9 mg/dL (8.5-10.1); Chloride 101 mmol/L (98-107); Creatinine, Serum 0.78 mg/dL (0.70-1.30); EST Glomerular Filtration Rate 106 mL/min (>60); Est Glom Filt Rate - Afr Amer 129 mL/min (>60); Estimated Creatinine Clearance 98.79 ml/min; Glucose 102 mg/dL (74-106); Lactic Acid 1.1 mmol/L (0.4-1.9); Potassium 3.6 mmol/L (3.5-5.1); Sodium Level 134 mmol/L (136-145)
[2021-01-01 10:50] LABS: Red Blood Cells-Urine 0-5 SEEN /hpf (0-5); Squamous Epithelial Cells - UA 0-5 SEEN /hpf (0-5); White Blood Cells 0-5 SEEN /hpf (0-5)
[2021-01-01 12:10] VITALS: BP 132/76; PULSE 80; RESP 16; TEMP 37.1; O2SAT 97
[2021-01-01 14:24] VITALS: BP 132/76; PULSE 80; RESP 16; TEMP 37.1; O2SAT 97
[2021-01-01 14:28] LABS: International Normalized Ratio 1.6
[2021-01-01 14:29] LABS: Partial Thromboplast Time 33.5 Seconds (24.1-36.2)
--- NOTE | 2021-01-01 14:49 | PCM.HP.STD ---
HPI - General General Date of Admission: 01/01/21 HPI Narrative DAJUAN PUCKETT, is a 65 M who presents after appendectomy for perforated appendicitis. The patient reports that since surgery he has been having right-sided abdominal pain and fatigue. He is also been having diarrhea and lack of appetite. He also has experiencing fevers at night. He denies any nausea or vomiting. [facility] Medical History (Updated 01/01/21 @ 13:[address] Shukri Jones MD) Epilepsy Glaucoma High cholesterol Home Medications atorvastatin 20 mg PO QHS 12/19/20 [History Last Taken Unknown] dorzolamide-timolol 1 drp RIGHT EYE BID 12/19/20 [History Last Taken Unknown] phenytoin sodium extended [Dilantin Extended] 400 mg PO QODAY 12/19/20 [History Last Taken Unknown] phenytoin sodium extended [Dilantin Extended] 500 mg PO QODAY 12/19/20 [History Last Taken Unknown] acetaminophen [Tylenol] 650 mg PO Q4H PRN PRN #0 tab 12/22/20 [Rx Last Taken Unknown] docusate sodium [DOK] 100 mg PO BID #10 cap 12/22/20 [Rx Last Taken Unknown] oxycodone 5 - 10 mg PO Q4H PRN PRN 7 Days #30 tab 12/22/20 [Rx Last Taken Unknown] Allergy/AdvReac Type Severity Reaction Status Date / Time bee venom protein (honey bee) Allergy Anaphylaxis Verified 01/01/21 09:50 Surgical History (Updated 01/01/21 @ 09:[address] Vincent Garica MD) S/P appendectomy Social History Smoking Status: Former smoker substance use type: does not use ROS Constitutional Constitutional: Reports anorexia, fatigue and fever(s) ENT HEENT: Denies abnormal hearing Cardiovascular Cardiovascular: Denies chest pain Respiratory/Chest Respiratory/Chest: Denies cough or dyspnea on exertion Gastrointestinal Gastrointestinal: Reports abdominal pain and diarrhea; Denies melena, nausea or vomiting Genitourinary Genitourinary: Denies change in urinary stream Musculoskeletal Musculoskeletal: Denies abnormal gait Integumentary Integumentary: Denies jaundice Vital Signs Vital Signs Vital Signs: 01/01/21 09:15 01/01/21 09:18 01/01/21 12:10 Temperature 97.6 F L 97.6 F L 98.8 F Temperature Source Temporal Temporal Temporal Pulse Rate 81 81 80 Respiratory Rate 16 16 16 Blood Pressure 112/80 112/80 132/76 H Blood Pressure Mean 90 90 94 Pulse Ox 96 96 97 Oxygen Delivery Method Room Air Room Air Room Air 01/01/21 14:24 Temperature 98.8 F Temperature Source Temporal Pulse Rate 80 Respiratory Rate 16 Blood Pressure 132/76 H Blood Pressure Mean 94 Pulse Ox 97 Oxygen Delivery Method Room Air Weight Weight: 170 lb 13.732 oz Body Mass Index (BMI) 24.5 Physical Exam Const oriented x3 and no apparent distress Resp normal respiratory effort Cardio regular rate and regular rhythm GI soft to palpation Inspection: Negative for abdominal distention Palpation: tender RUQ Results Lab / Micro Data Result Diagrams: 01/01/21 10:00 01/01/21 10:00 Labs: Laboratory Results - last 24 hr 01/01/21 10:00: WBC 12.0 H, RBC 4.61, Hgb 14.0, Hct 42.1, MCV 91.3, MCH 30.4, MCHC 33.3, RDW Std Deviation 42.7, RDW Coeff of Darren 12.7, Plt Count 616 H, MPV 9.5, Immature Gran % (Auto) 0.700, Neut % (Auto) 78.7 H, Lymph % (Auto) 10.7 L, [place] % (Auto) 9.5, Eos % (Auto) 0.2, Baso % (Auto) 0.2, Absolute Neuts (auto) 9.5 H, Absolute Lymphs (auto) 1.28, Nucleated RBC % 0 01/01/21 10:00: Sodium 134 L, Potassium 3.6, Chloride 101, Carbon Dioxide 24.0, Anion Gap 9, BUN 12, Creatinine 0.78, Estim Creat Clear Calc 98.79, Est GFR (MDRD) Af Amer 129, Est GFR (MDRD) Non-Af 106, BUN/Creatinine Ratio 15.4, Glucose 102, Calcium 8.9 01/01/21 10:00: Lactic Acid 1.1 01/01/21 10:30: Urine Color Yellow, Urine Clarity Sl. Cloudy, Urine pH 6.0, Ur Specific [place] 1.010, Urine Protein 30 H, Urine Glucose (UA) Normal, Urine Ketones 15 H, Urine Occult Blood 50 H, Urine Nitrite Negative, Urine Bilirubin Negative, Urine Urobilinogen Normal, Ur Leukocyte Esterase 25 H, Urine RBC 0-5 SEEN, Urine WBC 0-5 SEEN, Ur Squamous Epith Cells 0-5 SEEN, Urine Bacteria 0 SEEN, Urine Mucus 0 SEEN 01/01/21 14:15: PT 18.0 H, INR 1.6, APTT 33.5 Micro: Microbiology 01/01/21 09:50 Stool C. difficile DNA Amplification - Final Radiology Impression Abdomen/Pelvis CT 01/01/21 09:53 IMPRESSION: There is a 6.9 cm x 7.1 cm x 10.1 cm well-circumscribed hypodense mass in the inferior medial aspect of the right lobe of the liver. Small amount of air is seen within the suggestive of a localized hepatic abscess. Increased markings are also seen in the surrounding peritoneal fat. The patient is status post appendectomy with a mild residual postsurgical changes seen in the surrounding peritoneal fat. Electronically Signed: Leo Mckoy MD at 12:44 EDT , Service support , Assessment & Plan Assessment/Plan (1) Abscess, hepatic: PLAN: Patient has a hepatic abscess in the postoperative period after perforated appendectomy. Patient has been experiencing right-sided pain as well as diarrhea and fevers. I will admit the patient and start antibiotics and order percutaneous drainage. Vincent Garcia MD Pager: [facility] [address] [place] [address], [address] [place] [address] Office:
[2021-01-01 15:05] VITALS: BP 146/83; PULSE 87; RESP 16; TEMP 37.2; O2SAT 96
[2021-01-01 15:19] VITALS: BMI 24.7
[2021-01-01] MEDS: 0.9% Normal Saline 1,000 ML 60 ML IV (16:01)
[2021-01-01] MEDS: Phenytoin Na 100 MG Capsule 200 MG PO (18:31)
[2021-01-01] MEDS: Acetaminophen 325 MG Tablet 650 MG PO (20:47)
[2021-01-01] MEDS: Atorvastatin Calcium 20 MG Tablet PO ×2 (20:48→21:02)
[2021-01-01] MEDS: Dorzolamide HCL/Timolol 10 ml Bottle 1 DRP RIGHT EYE (21:08)
[2021-01-01 21:21] VITALS: BP 142/66; PULSE 84; RESP 16; TEMP 36.8; O2SAT 97
[2021-01-02] VITALS (12 sets, daily range): BP systolic 105–144; BP diastolic 63–81; PULSE 67–95; RESP 16–22; TEMP 36.5–36.6; O2SAT 95–100
[2021-01-02 06:38] LABS: Absolute Lymphocyte Count 1.17 X10^3/uL (0.83-4.51); Absolute Neutrophil Count 9.6 X10^3/uL (2.0-7.7); Basophil# 0.04 X10^3/uL; Basophil% 0.3 % (0-1); Eosinophil# 0.03 X10^3/uL; Eosinophils% 0.2 % (0-5); Hemoglobin 12.8 g/dL (13.0-16.5); Lymphocyte # 1.17 X10^3/ul (0.83-4.51); Lymphocyte % 9.7 % (19-41); Mean Corp Hgb Conc 32.8 g/dL (32-36); Mean Corpuscular Hgb 30.3 pg (27.0-32.0); Mean Corpuscular Volume 92.4 fL (80-94); Mean Platelet Vol. 9.9 fl (6.2-12.0); Monocyte# 1.07 X10^3/uL; Monocyte% 8.9 % (0-10); NRBC Flagged by Analyzer 0 % (0-5); Neutrophil # 9.63 X10^3/uL (2.7-7.7); Platelet Count 540 K/mm3 (150-450); RBC Distribution Width CV 12.8 % (11.6-14.6); RBC Distribution Width SD 43.1 fl (35.1-43.9); Red Blood Count 4.22 M/mm3 (4.6-6.2); White Blood Count 12.1 K/mm3 (4.4-11.0)
[2021-01-02 07:01] LABS: Anion Gap 11 (5-15); BUN 10 mg/dL (7-18); BUN/Creat Ratio 15.2 RATIO (10-20); Calcium,Total 8.5 mg/dL (8.5-10.1); Chloride 105 mmol/L (98-107); Creatinine, Serum 0.66 mg/dL (0.70-1.30); EST Glomerular Filtration Rate 129 mL/min (>60); Est Glom Filt Rate - Afr Amer 156 mL/min (>60); Estimated Creatinine Clearance 116.75 ml/min; Glucose 99 mg/dL (74-106); Potassium 3.2 mmol/L (3.5-5.1); Sodium Level 135 mmol/L (136-145)
--- NOTE | 2021-01-02 08:55 | NURSING ---
PT ARRIVES FROM PCU. A & O X3, CONVERSIVE WITH STAFF. DENIES PAIN. MILD NAUSEA. FINE CRACKLES IN BASES. DENIES SOB/COUGH. ABD NON TENDER.
--- NOTE | 2021-01-02 09:00 | CT_ITS ---
PROCEDURE: CT DIRECTED ABSCESS DRAINAGE, right lobe of the liver. DATE OF EXAMINATION: 01/02/2021. INDICATION: Male, 65 years old. Right hepatic abscess. PHYSICIAN: Leo Mckoy M.D. CONSENT: Written informed consent was obtained having explained the risks, benefits and alternatives in detail with the patient who accepted the risks and agreed to proceed. Laboratory review and clinical assessment was performed. CONSCIOUS SEDATION PROTOCOL: The Drugs used were: 2 mg Versed, IV., and 50 mcg Fentanyl, IV. The sedation time was: 11 minutes. The conscious sedation protocol was independently monitored. Conscious sedation was started at 9:19 AM and terminated at 940. RADIATION DOSAGE (If Supplied By Facility): CTDIvol = ( 15 ) mGy, DLP = ( 579.58 ) mGycm. Individualized dose optimization techniques were utilized. TECHNIQUE: CT sections were made through the abdomen and pelvis revealing an abscess in the right lobe of the liver. The skin surface was prepped and draped in a sterile fashion. Puncture of this collection was performed initially with a 8French catheter and fluid was aspirated. Drainage catheter was then inserted into the collection and formed into position. Additional fluid was aspirated for a total of approximately 150 cc of purulent fluid. The catheter was sutured into position to allow for continued drainage. Followup CT sections reveals good position of the catheter. CT/CT Guidance Abscess Drg w/Cath IMPRESSION: 1. CT directed drainage of an abscess in the right lobe of the liver collection using CT image guidance and image documentation as described. 2. Conscious Sedation protocol utilized with independent monitoring Electronically Signed: Leo Mckoy MD at 11:10 EDT , Service support ,
[2021-01-02] MEDS: fentaNYL 100 MCG/2 ML Ampul IV (09:19)
[2021-01-02] MEDS: Midazolam 2 MG/2 ML Syringe IV (09:19)
[2021-01-02] MEDS: Lidocaine 2% (20 ml mdv) 20 ML Vial INFILT (09:25)
--- NOTE | 2021-01-02 10:55 | CASEMGMT ---
RN KALEIGH Face to Face with patient for initial transition planning/care coordination assessment. RN CM introduced self and role at [facility]. Patient lying in bed, alert and oriented, at bedside. Patient willing to participate in assessment and is able to answer all questions appropriately. Care providers, pharmacy, and demographics verified. Patient wishes to discharge home, denies need for home health at this time. Patient states he has no further needs or concerns at this time. CM to follow for discharge planning needs that may arise. PCP: Sina Specialists: none Preferred Pharmacy: [facility] Insurance: [employer] Prescription Benefit: yes Living Will/HPOA: none LNOK: Living Arrangements: Patient lives with in a 2 story home with bed and bath on first floor. Patient states he is independent at home. Transportation: self/ DME/HHC: Patient states he has a shower chair at home. Denies further DME. Denies previous HHC. Disposition Plan: Patient to discharge home with family support and follow-up plans in place. Amberly ERICKSON, RN, CM
[2021-01-02] MEDS: Phenytoin Na 100 MG Capsule 200 MG PO ×2 (11:36→16:18)
[2021-01-02] MEDS: Dorzolamide HCL/Timolol 10 ml Bottle 1 DRP RIGHT EYE ×2 (11:37→21:05)
[2021-01-02] MEDS: oxyCODONE 5 MG Tablet PO ×2 (13:52→18:12)
[2021-01-02] MEDS: 0.9% Normal Saline 1,000 ML 60 ML IV (13:55)
[2021-01-02] MEDS: Morphine 2 MG/ML Syringe IV (16:15)
[2021-01-02] MEDS: Atorvastatin Calcium 20 MG Tablet PO (21:05)
[2021-01-03] MEDS: oxyCODONE 5 MG Tablet PO (00:09)
[2021-01-03 03:00] VITALS: BP 117/74; PULSE 67; RESP 18; TEMP 36.9; O2SAT 96
[2021-01-03] MEDS: Acetaminophen 325 MG Tablet 650 MG PO (06:37)
[2021-01-03 07:13] LABS: Absolute Lymphocyte Count 1.37 X10^3/uL (0.83-4.51); Absolute Neutrophil Count 3.3 X10^3/uL (2.0-7.7); Basophil# 0.03 X10^3/uL; Basophil% 0.6 % (0-1); Eosinophil# 0.11 X10^3/uL; Hematocrit 36.3 % (40-54); Hemoglobin 11.9 g/dL (13.0-16.5); Lymphocyte # 1.37 X10^3/ul (0.83-4.51); Lymphocyte % 25.4 % (19-41); Mean Corp Hgb Conc 32.8 g/dL (32-36); Mean Corpuscular Hgb 30.3 pg (27.0-32.0); Mean Corpuscular Volume 92.4 fL (80-94); Mean Platelet Vol. 9.7 fl (6.2-12.0); Monocyte# 0.56 X10^3/uL; Monocyte% 10.4 % (0-10); NRBC Flagged by Analyzer 0 % (0-5); Neutrophil # 3.29 X10^3/uL (2.7-7.7); Platelet Count 540 K/mm3 (150-450); RBC Distribution Width SD 44.6 fl (35.1-43.9); Red Blood Count 3.93 M/mm3 (4.6-6.2); White Blood Count 5.4 K/mm3 (4.4-11.0)
[2021-01-03 07:30] VITALS: O2SAT 94
--- NOTE | 2021-01-03 07:36 | PCM.DC.SUM ---
Providers Date of Admission: 01/01/21 Primary Care Physician: Dr. Rashawn Andino MD Reason For Visit: POSTOP ABSCESS AFTER PERFORATED APPENDICITIS Diagnosis Discharge Diagnosis (1) Abscess, hepatic: Status: Acute Code(s): K75.0 - Abscess of liver Medications at Discharge Home Medications atorvastatin 20 mg PO QHS 12/19/20 dorzolamide-timolol 1 drp RIGHT EYE BID 12/19/20 phenytoin sodium extended [Dilantin Extended] 400 mg PO QODAY 12/19/20 phenytoin sodium extended [Dilantin Extended] 500 mg PO QODAY 12/19/20 acetaminophen [Tylenol] 650 mg PO Q4H PRN PRN #0 tab 12/22/20 brimonidine 1 drp RIGHT EYE TID 01/02/21 latanoprost 1 drp EACH EYE QPM 01/02/21 amoxicillin-pot clavulanate [Augmentin] 1 tab PO BID #14 tab 01/03/21 oxycodone 5 - 10 mg PO Q4H PRN PRN 5 Days #20 tab 01/03/21 Hospital Course Summary of Care Provided Hospital Course: Patient was readmitted after experiencing fevers and right-sided pain at home. CT scan showed a hepatic abscess. Percutaneous drain was placed. Following day the patient was feeling much better and discharged home with drain in place. Medical Records Data Medical Nutrition Assessment Dietitian: Nutrition Therapy Diagnosis Start: 01/01/21 16:00 Freq: Status: Active Protocol: Document 01/01/21 16:10 [facility] (Rec: 01/01/21 16:10 [facility] [id number]) Nutrition Malnutrition Evidence of Malnutrition Exists Yes Malnutrition (severe): Acute Illness/Injury Evidenced By Suboptimal Energy Intake ( Moderate),Weight Loss (Severe) ,Physical Changes (Severe) Clinical Problem Acute Disease or Injury Related Malnutrition Etiology related to recent appendectomy and post op abscess Signs/Symptoms as evidenced by 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 Pt also w/ fat/muscle loss in orbital/temporal regions, pt states that arms and legs smaller. Status Active Problem Recommendation Dietitian Recommendations/Changes As medically able, rec diet as tolerated to liberal regular diet As medically able, rec 120 ml ensure enlive 4x/day with medpass for increased nutrition if consumed. Weight / BMI Weight Weight: 172 lb 6.424 oz Body Mass Index (BMI) 24.7 ABG / Lab / Microbiology Data Result Diagrams: 01/03/21 06:00 01/02/21 05:55 Laboratory: Laboratory Results - last 24 hr 01/03/21 06:00: WBC 5.4, RBC 3.93 L, Hgb 11.9 L, Hct 36.3 L, MCV 92.4, MCH 30.3, MCHC 32.8, RDW Std Deviation 44.6 H, RDW Coeff of Darren 13.0, Plt Count 540 H, MPV 9.7, Immature Gran % (Auto) 0.600, Neut % (Auto) 61.0, Lymph % (Auto) 25.4, [place] % (Auto) 10.4 H, Eos % (Auto) 2.0, Baso % (Auto) 0.6, Absolute Neuts (auto) 3.3, Absolute Lymphs (auto) 1.37, Nucleated RBC % 0 Microbiology: Microbiology 01/02/21 09:35 Aspirate - Abdominal Gram Stain - Final 01/01/21 09:50 Stool C. difficile DNA Amplification - Final Radiography Diagnostic Testing: Radiology Impression Abscess Drainage CT 01/02/21 09:00 IMPRESSION: 1. CT directed drainage of an abscess in the right lobe of the liver collection using CT image guidance and image documentation as described. 2. Conscious Sedation protocol utilized with independent monitoring Electronically Signed: Leo Mckoy MD at 11:10 EDT , Service support , D/C Instructions Discharge Diet: Light diet - advance as tolerated Discharge Activity: May Shower Lifting Restrictions: 20 lbs Call your doctor if your incision/area has: Continuous Slow Oozing, Sudden Increased Bleeding, Increased Pain/ Swelling, Increased Redness, Foul Smelling Discharge and Swelling at the incision site Call your doctor if you observe: Fever of 101 or Higher Change Dressing in: leave in place till F/U Drain: Suction Please Follow Up With: Vincent Garcia MD When: Please call to schedule Friday follow up appointment. [phone] Meaningful Use Info Meaningful Use Diagnoses (Choose all that apply): None applicable Discharge Plan Admission Admit Date/Time: 01/01/21 13:38 Attending Provider: Vincent Garcia Primary Care Provider: Rashawn Andino Discharge Orders/Prescriptions Prescriptions: New amoxicillin-pot clavulanate [Augmentin] 875-125 mg tablet 1 tab PO BID Qty: 14 RF: 0 Continued atorvastatin 20 mg Tablet 20 mg PO QHS RF: 0 phenytoin sodium extended [Dilantin Extended] 100 mg Capsule 500 mg PO QODAY RF: 0 phenytoin sodium extended [Dilantin Extended] 100 mg Capsule 400 mg PO QODAY RF: 0 dorzolamide-timolol 22.3-6.8 mg/mL Drops 1 drp RIGHT EYE BID RF: 0 acetaminophen [Tylenol] 325 mg Tablet 650 mg PO Q4H PRN PRN (Reason: pain 1-10/fever) Qty: 0 RF: 0 brimonidine 0.2 % Drops 1 drp RIGHT EYE TID RF: 0 latanoprost 0.005 % Drops 1 drp EACH EYE QPM RF: 0 oxycodone 5 mg Tablet 5 - 10 mg PO Q4H PRN PRN (Reason: Pain Score 4-10) 5 Days Qty: 20 RF: 0 Referrals / Follow Up: Rashawn Andino MD [Primary Care Provider] - Disposition Disposition (needs filled in before D/C Order can be placed): Home, Self Care
[2021-01-03 08:05] VITALS: BP 122/67; PULSE 64; RESP 18; TEMP 35.9; O2SAT 98
[2021-01-03] MEDS: Dorzolamide HCL/Timolol 10 ml Bottle 1 DRP RIGHT EYE (08:10)
[2021-01-03] MEDS: Phenytoin Na 100 MG Capsule 300 MG PO (08:11)
--- NOTE | 2021-01-03 10:37 | NURSING ---
0900 Maintenance Construction Helper Elsie Ayon assisting in providing care/discharge to pt
--- NOTE | 2021-01-03 10:50 | PHA.DC.MR ---
Pharmacy Service has performed discharge medication reconciliation for this patient. The patient's discharge medication list was reviewed for discrepancies and discrepancies were resolved. Home Medications atorvastatin 20 mg PO QHS 12/19/20 dorzolamide-timolol 1 drp RIGHT EYE BID 12/19/20 phenytoin sodium extended [Dilantin Extended] 400 mg PO QODAY 12/19/20 phenytoin sodium extended [Dilantin Extended] 500 mg PO QODAY 12/19/20 acetaminophen [Tylenol] 650 mg PO Q4H PRN PRN #0 tab 12/22/20 brimonidine 1 drp RIGHT EYE TID 01/02/21 latanoprost 1 drp EACH EYE QPM 01/02/21 amoxicillin-pot clavulanate [Augmentin] 1 tab PO BID #14 tab 01/03/21 oxycodone 5 - 10 mg PO Q4H PRN PRN 5 Days #20 tab 01/03/21
== END 2021-01-03 11:47 | disposition home or self-care (01) | DRG 441 ==
LOC: ED 13:50 → PCU 01-02 06:54
PROVIDERS: Admitting Provider Surgery; Emergency Provider Emergency Medicine; PCP Family Medicine; Visit Provider Surgery
DX: K75.0 Abscess of liver (principal); E43 Unspecified severe protein-calorie malnutrition; K68.11 Postprocedural retroperitoneal abscess; Z68.24 Body mass index [BMI] 24.0-24.9, adult; E78.00 Pure hypercholesterolemia, unspecified; G40.909 Epilepsy, unspecified, not intractable, without status epilepticus; Z90.49 Acquired absence of other specified parts of digestive tract; Z79.899 Other long term (current) drug therapy; Z87.891 Personal history of nicotine dependence
CPT/HCPCS: 36415; 74177; 75989; 80048; 81001; 83605; 85025; 85610; 85730; 87040; 87070; 87075; 87077; 87186; 87205; 87493; 97802; 99156; 99285; J7030; J7050; Q9967; A4216

== ENCOUNTER 2021-04-23 07:30 | Observation (INO) | payer MEDICAID, SELFPAY ==
[2021-04-23 07:31] VITALS: BP 154/102; PULSE 72; RESP 17; TEMP 35.5; O2SAT 99; BMI 23.6
--- NOTE | 2021-04-23 07:42 | EKG12_ITS ---
Test Reason : Blood Pressure : / mmHG Vent. Rate : 062 BPM Atrial Rate : 062 BPM P-R Int : 164 ms QRS Dur : 088 ms QT Int : 398 ms P-R-T Axes : 048 011 072 degrees QTc Int : 403 ms Normal sinus rhythm Normal ECG Confirmed by LAURIE MARI, ANITA ([id number]), legal editor JANNIE RAYMUNDO ([id number]) on 04/24/2021 7:54:14 AM Referred By: KHUSHBOO Confirmed By:ANITA SULLIVAN MD
--- NOTE | 2021-04-23 07:46 | EDS_ITS ---
HPI History of Present Illness Chief Complaint: Anxiety Informant: patient and spouse/S.O. Onset/Context/Timing Onset: Days Narrative Narrative: Patient presents secondary to anxiety and difficulty sleeping. Patient states for the last nearly week he has been unable to sleep. He has tried taking melatonin along with a dose of his 's trazodone. He states he just feels very anxious. He is never had similar symptoms to this. Patient was recently started on Lexapro, but states that his symptoms got worse so she had him stop the medication. He denies suicidal ideation. [facility] Medical History Epilepsy Glaucoma High cholesterol Home Medications atorvastatin 20 mg PO QHS 12/19/20 [History Last Taken Unknown] dorzolamide-timolol 1 drp RIGHT EYE BID 12/19/20 [History Last Taken Unknown] phenytoin sodium extended [Dilantin Extended] 400 mg PO QODAY 12/19/20 [History Last Taken Unknown] phenytoin sodium extended [Dilantin Extended] 500 mg PO QODAY 12/19/20 [History Last Taken Unknown] brimonidine 1 drp RIGHT EYE TID 01/02/21 [History Last Taken 01/02/21] latanoprost 1 drp EACH EYE QPM 01/02/21 [History Last Taken 01/01/21] escitalopram oxalate 10 mg PO DAILY 04/23/21 [History Last Taken Unknown] famciclovir 500 mg PO DAILY PRN PRN 04/23/21 [History Last Taken Unknown] Allergy/AdvReac Type Severity Reaction Status Date / Time bee venom protein (honey bee) Allergy Anaphylaxis Verified 04/23/21 07:33 Surgical History S/P appendectomy Social History Smoking Status: Former smoker substance use type: does not use ROS ROS ED Constitutional Constitutional ED: Denies chills or fever(s) Eyes Eyes: Denies change in vision ENT ENT ED: Denies sore throat Cardiovascular Cardiovascular: Denies chest pain Respiratory/Chest Respiratory/Chest: Denies cough or dyspnea Gastrointestinal Gastrointestinal: Denies abdominal pain, diarrhea, nausea or vomiting Genitourinary Genitourinary ED: Denies dysuria Musculoskeletal Musculoskeletal: Denies back pain Integumentary Denies rash Neurologic Neurologic: Denies headache(s) or weakness Psychiatric Psychiatric: Reports anxiety; Denies suicidal thoughts Allergic/Immunologic Allergic/Immunologic ED: Denies urticaria EXAM Physical Exam Const Vital Signs: 04/23/21 07:31 Temperature 96 F L Temperature Source Temporal Pulse Rate 72 Respiratory Rate 17 Blood Pressure 154/102 H Blood Pressure Mean 119 Pulse Ox 99 Oxygen Delivery Method Room Air Positive well nourished and well developed General Appearance ED: well developed HEENT Reports moist mucous membranes Neck supple Chest Wall inspection of chest normal and palpation of chest normal Resp normal respiratory effort and clear to auscultation bilaterally Cardio regular rate and regular rhythm GI normal to inspection, nondistended, normoactive bowel sounds and non-tender Palpation: soft Neuro oriented x3 Sensorium / Orientation: alert Psych Mood & Affect: anxious Skin no rashes or lesions noted MDM MDM MDM Narrative Medical decision making narrative: Lab work, EKG ordered. Patient given 0.5 mg of IV Ativan. Lab Data Attestation: I reviewed the patient's lab results. Labs: Laboratory Results - last 24 hr 04/23/21 04/23/21 04/23/21 08:26 08:26 08:26 WBC 5.5 RBC 5.42 Hgb 16.9 H Hct 49.7 MCV 91.7 MCH 31.2 MCHC 34.0 RDW Std Deviation 40.5 RDW Coeff of Darren 12.0 Plt Count 221 MPV 9.7 Immature Gran % (Auto) 0.200 Neut % (Auto) 55.1 Lymph % (Auto) 33.2 [place] % (Auto) 9.7 Eos % (Auto) 1.1 Baso % (Auto) 0.7 Absolute Neuts (auto) 3.1 Absolute Lymphs (auto) 1.84 Nucleated RBC % 0 Sodium 139 Potassium 3.8 Chloride 106 Carbon Dioxide 28.0 Anion Gap 5 BUN 11 Creatinine 0.87 Estim Creat Clear Calc 88.57 Est GFR (MDRD) Af Amer 113 Est GFR (MDRD) Non-Af 93 BUN/Creatinine Ratio 12.6 Glucose 102 Calcium 9.9 Total Bilirubin 0.40 Direct Bilirubin 0.13 AST 31 ALT 58 Alkaline Phosphatase 114 Total Protein 8.1 Albumin 4.2 Globulin 3.9 Phenytoin 28.3 H EKG Initial EKG: Attestation: I personally reviewed and interpreted this EKG as follows: Interpretation: Sinus Rhythm (Sinus at 62 with no acute ischemia.) Treatment and Re-Evaluation Comments:: Lab work reviewed. Patient's hemoglobin is concentrated at 16.9. He is given a liter of IV fluid. Renal function is normal. Dilantin level is elevated at 28.3. In light of this I will speak with hospitalist regarding admission for Dilantin toxicity. Discharge Plan Triage Chief Complaint: Anxiety ED Provider: Aliza Brown Dx/Rx/DC Orders Clinical Impression: Dilantin toxicity Prescriptions: No Action atorvastatin 20 mg Tablet 20 mg PO QHS RF: 0 phenytoin sodium extended [Dilantin Extended] 100 mg Capsule 500 mg PO QODAY RF: 0 phenytoin sodium extended [Dilantin Extended] 100 mg Capsule 400 mg PO QODAY RF: 0 dorzolamide-timolol 22.3-6.8 mg/mL Drops 1 drp RIGHT EYE BID RF: 0 brimonidine 0.2 % Drops 1 drp RIGHT EYE TID RF: 0 latanoprost 0.005 % Drops 1 drp EACH EYE QPM RF: 0 famciclovir 500 mg tablet 500 mg PO DAILY PRN PRN (Reason: herpes) RF: 0 escitalopram oxalate 10 mg Tablet 10 mg PO DAILY RF: 0 Primary Care Provider: Rashawn Andino Referrals: Rashawn Andino MD [Primary Care Provider] - Disposition Disposition: Acute Care Hospital [facility]
[2021-04-23 08:33] LABS: Absolute Lymphocyte Count 1.84 X10^3/uL (0.83-4.51); Absolute Neutrophil Count 3.1 X10^3/uL (2.0-7.7); Basophil# 0.04 X10^3/uL; Basophil% 0.7 % (0-1); Eosinophil# 0.06 X10^3/uL; Eosinophils% 1.1 % (0-5); Hematocrit 49.7 % (40-54); Hemoglobin 16.9 g/dL (13.0-16.5); Lymphocyte # 1.84 X10^3/ul (0.83-4.51); Lymphocyte % 33.2 % (19-41); Mean Corpuscular Hgb 31.2 pg (27.0-32.0); Mean Corpuscular Volume 91.7 fL (80-94); Mean Platelet Vol. 9.7 fl (6.2-12.0); Monocyte# 0.54 X10^3/uL; Monocyte% 9.7 % (0-10); NRBC Flagged by Analyzer 0 % (0-5); Neutrophil # 3.05 X10^3/uL (2.7-7.7); Neutrophil % 55.1 % (47-70); Platelet Count 221 K/mm3 (150-450); RBC Distribution Width SD 40.5 fl (35.1-43.9); Red Blood Count 5.42 M/mm3 (4.6-6.2); White Blood Count 5.5 K/mm3 (4.4-11.0)
[2021-04-23] MEDS: 0.9% Normal Saline 1,000 ML 999 ML IV (08:45)
[2021-04-23] MEDS: LORazepam 2 MG/ML Syringe 0.5 MG IV (08:45)
[2021-04-23 08:49] LABS: AST(SGOT) 31 U/L (15-37); Alanine Aminotransfer ALT/SGPT 58 U/L (16-61); Albumin, Serum 4.2 g/dL (3.2-5.0); Alkaline Phosphatase 114 U/L (45-117); Anion Gap 5 (5-15); BUN 11 mg/dL (7-18); BUN/Creat Ratio 12.6 RATIO (10-20); Bilirubin, Direct 0.13 mg/dL (0.00-0.30); Calcium,Total 9.9 mg/dL (8.5-10.1); Chloride 106 mmol/L (98-107); Creatinine, Serum 0.87 mg/dL (0.70-1.30); EST Glomerular Filtration Rate 93 mL/min (>60); Est Glom Filt Rate - Afr Amer 113 mL/min (>60); Estimated Creatinine Clearance 88.57 ml/min; Globulin 3.9 g/dL (2.2-4.2); Glucose 102 mg/dL (74-106); Potassium 3.8 mmol/L (3.5-5.1); Protein, Total 8.1 g/dL (6.4-8.2); Sodium Level 139 mmol/L (136-145)
[2021-04-23 09:36] LABS: Phenytoin (Dilantin) Level 28.3 mL (10.0-20.0)
--- NOTE | 2021-04-23 10:36 | PCM.HP.STD ---
HPI - General General Date of Admission: 04/23/21 Date of Service: 04/23/21 Chief Complaint: Anxiety HPI Narrative The patient is a 65 y/o M w/ PMHx: Epilepsy, Former Tobacco use, HLD, Glaucoma who presents to the [facility] ED on 04/23/21 with several month history of progressively worsening flat affect, poor sleep, perseveration, self isolation and avoidance of any activities with PCP recent evaluation and diagnoses of anxiety and depression with outpatient initiation on Celexa which started approximately Friday of the week prior with onset per patient report significant increased anxious symptoms and mild agitation prompting him to stop his medication with last dose on Friday and present to the ED for evaluation. Patient is very specific given his seizure disorder with medication preference to avoid any additional medications but amenable to therapy and discussed this at length with him and his . Patient's notes that he has not been sleeping will often be up pacing at night thinking about specific things. She has had him try one of her trazodone's and this was not very effective. Both patient and his have been vaccinated against COVID and do intend to get their boosters. Work-up in the ED included T 96, heart rate 72, BP 154/102, respiratory rate 17, 99% on room air, unremarkable CBC, unremarkable CMP, phenytoin level 28.3. In the ED patient ministered normal saline bolus as well as Ativan 0.5 mg x 1. [facility] Medical History (Updated 04/23/21 @ 14:[address] Melissa Gregory MD) Abscess, hepatic Epilepsy Former smoker Glaucoma H/O drainage of abscess High cholesterol Home Medications atorvastatin 20 mg PO QHS 12/19/20 [History Last Taken Unknown] dorzolamide-timolol 1 drp RIGHT EYE BID 12/19/20 [History Last Taken Unknown] phenytoin sodium extended [Dilantin Extended] 400 mg PO QODAY 12/19/20 [History Last Taken Unknown] phenytoin sodium extended [Dilantin Extended] 500 mg PO QODAY 12/19/20 [History Last Taken Unknown] brimonidine 1 drp RIGHT EYE TID 01/02/21 [History Last Taken 01/02/21] latanoprost 1 drp EACH EYE QPM 01/02/21 [History Last Taken 01/01/21] escitalopram oxalate 10 mg PO DAILY 04/23/21 [History Last Taken Unknown] famciclovir 500 mg PO DAILY PRN PRN 04/23/21 [History Last Taken Unknown] Allergy/AdvReac Type Severity Reaction Status Date / Time bee venom protein (honey bee) Allergy Anaphylaxis Verified 04/23/21 07:33 Family History (Updated 04/23/21 @ 14:[address] Melissa Gregory MD) Mother Cancer Hx leukemia, age 89. Father CVA (cerebral vascular accident) age 84. Surgical History S/P appendectomy Social History (Updated 04/23/21 @ 14:[address] Melissa Gregory MD) household members: spouse Smoking Status: Former smoker how long ago did patient quit smoking: Smoked 0.75 ppd since 19/19 years old, quit in 2016. alcohol intake: never substance use type: does not use ROS ROS Narrative Admission Review of Systems: CONSTITUTIONAL: No weight loss, fever, chills, + weakness or fatigue. HEENT: Eyes: No visual loss, blurred vision, double vision or yellow sclerae. Ears, Nose, Throat: No hearing loss, sneezing, congestion, runny nose or sore throat. SKIN: No rash or itching, lesions, wounds. CARDIOVASCULAR: No chest pain, chest pressure or chest discomfort, palpitations, edema, orthopnea, syncopal events. RESPIRATORY: No shortness of breath, cough or sputum, wheezing, hemoptysis. GASTROINTESTINAL: + Anorexia, No nausea, vomiting or diarrhea, abdominal pain, melena, BRBPR. GENITOURINARY: No dysuria, frequency, urgency or retention. NEUROLOGICAL: No headache, dizziness, syncope, paralysis, ataxia, numbness or tingling in the extremities, focal weakness, change in bowel or bladder control, seizure. MUSCULOSKELETAL: No muscle, back pain, joint pain or stiffness. HEMATOLOGIC: No anemia, bleeding or bruising. LYMPHATICS: No enlarged nodes. No history of splenectomy. PSYCHIATRIC: + Symptoms with uncontrolled depression and anxiety, insomnia. ENDOCRINOLOGIC: No reports of sweating, cold or heat intolerance. No polyuria or polydipsia. ALLERGIES: No history of asthma, hives, eczema or rhinitis. Vital Signs Vital Signs Vital Signs: 04/23/21 07:31 Temperature 96 F L Temperature Source Temporal Pulse Rate 72 Respiratory Rate 17 Blood Pressure 154/102 H Blood Pressure Mean 119 Pulse Ox 99 Oxygen Delivery Method Room Air Weight Weight: 165 lb Body Mass Index (BMI) 23.6 Physical Exam Narrative Physical Examination: General: Awake, alert, oriented x 3 and cooperative, seated upright in the ED bed in no apparent distress, fatigued and anxious appearing. Skin: Normal color, normal turgor, no icterus, no cyanosis. HEENT: AT/NC, EOMI, PERRLA, mildly dry MM, no carotid bruits or JVD noted. Lungs: CTA bilaterally, moderate effort, mild decrease BL bases, no rales, ronchi or wheezing. Heart: Regular rate and rhythm; no gallop, rub audible. Abdomen: Soft, NTTP, ND, normal BS, no HSM. Extremities: No cyanosis, clubbing, or edema. Neurological: Patient awake, alert, oriented as noted, cognitive function appears intact; pupils equally reactive to light and accommodation, cranial nerves II-XII grossly normal, moving all 4 extremities, no focal deficits, strength preserved. Psychiatric: Affect appears flat, fatigued appearing, admits to anxiety and significant perseveration as well as insomnia, did review symptoms and following did discuss concerned that there is underlying depression. Results Lab / Micro Data Result Diagrams: 04/23/21 08:26 04/23/21 08:26 Labs: Laboratory Results - last 24 hr 04/23/21 08:26: WBC 5.5, RBC 5.42, Hgb 16.9 H, Hct 49.7, MCV 91.7, MCH 31.2, MCHC 34.0, RDW Std Deviation 40.5, RDW Coeff of Darren 12.0, Plt Count 221, MPV 9.7, Immature Gran % (Auto) 0.200, Neut % (Auto) 55.1, Lymph % (Auto) 33.2, [place] % (Auto) 9.7, Eos % (Auto) 1.1, Baso % (Auto) 0.7, Absolute Neuts (auto) 3.1, Absolute Lymphs (auto) 1.84, Nucleated RBC % 0 04/23/21 08:26: Sodium 139, Potassium 3.8, Chloride 106, Carbon Dioxide 28.0, Anion Gap 5, BUN 11, Creatinine 0.87, Estim Creat Clear Calc 88.57, Est GFR (MDRD) Af Amer 113, Est GFR (MDRD) Non-Af 93, BUN/Creatinine Ratio 12.6, Glucose 102, Calcium 9.9, Total Bilirubin 0.40, Direct Bilirubin 0.13, AST 31, ALT 58, Alkaline Phosphatase 114, Total Protein 8.1, Albumin 4.2, Globulin 3.9 04/23/21 08:26: Phenytoin 28.3 H Assessment & Plan Assessment/Plan (1) Anxiety and depression: (2) Dilantin toxicity: QUALIFIERS: Encounter type: initial encounter Injury intent: accidental or unintentional Qualified Code(s): T42.0X1A - Poisoning by hydantoin derivatives, accidental (unintentional), initial encounter PLAN: The patient is a 65 y/o M w/ PMHx: Epilepsy, Former Tobacco use, HLD, Glaucoma who presents to the [facility] ED on 04/23/21 with several month history of progressively worsening flat affect, poor sleep, perseveration, self isolation and avoidance of any activities with PCP recent evaluation and diagnoses of anxiety and depression with outpatient initiation on Celexa which started approximately Friday of the week prior with onset per patient report significant increased anxious symptoms and mild agitation prompting him to stop his medication with last dose on Friday and present to the ED for evaluation. #1. Acute Mild Dilantin Toxicity with Epilepsy: Suspect the patient presentation with increased anxiety is not necessarily secondary to Dilantin mild increased level although patient in the past does note that when he is in the higher 20s he has been symptomatic but he describes this primarily as lightheadedness and dizziness which she is not having currently, to be cautious however will admit to medical surgical floor, maintain on monitor, continue judicious fluids and hold patient Dilantin regimen with repeat level in AM. If level has normalized we will plan discharge to home. #2. Anxiety and depression, uncontrolled: Per discussion with patient will stop patient's Celexa regimen but did discuss at length that sometimes with anxiety and depression patients can have mildly increased anxiety in the beginning initiation of these type of medications. Did discuss several options including local therapy options and his did take this information to make visits. Also discussed with the importance of making early follow-up with his PCP. #3. Elevated BP without hypertensive diagnosis: Patient with elevated blood pressures above goal in the emergency room, no prior history, will continue to closely monitor and if remains elevated may necessitate initiation of oral treatment, as needed IV hydralazine in interim. #4. Hyperlipidemia: We will continue patient on statin therapy #5. Former tobacco use: Encourage continued tobacco cessation. #6. Glaucoma, unclear specific type: We will continue patient home eyedrops. #7. DVT prophylaxis: Low risk, encourage ambulation. Charges/Coding Visit Charges OBSV E&M: 60926 Initial observation care L3
[2021-04-23 10:58] VITALS: BP 154/102; PULSE 72; RESP 17; TEMP 35.5; O2SAT 99
[2021-04-23 12:03] VITALS: BP 143/74; PULSE 79; RESP 18; TEMP 36.3; O2SAT 98
[2021-04-23 13:23] VITALS: BMI 22.5
[2021-04-23 13:27] VITALS: BP 156/95; PULSE 67; RESP 18; TEMP 36.4; O2SAT 99
[2021-04-23] MEDS: 0.9% Normal Saline 1,000 ML 150 ML IV ×2 (14:05→21:06)
[2021-04-23 15:27] VITALS: O2SAT 95
--- NOTE | 2021-04-23 19:00 | PCS.PANDOC ---
PANDEMIC DOCUMENTATION INITIATED: Date: 01/08/2021 Time: 190 Emergency documentation initiated 04/23/21 @ 1900
[2021-04-23] MEDS: Atorvastatin Calcium 20 MG Tablet PO (21:04)
[2021-04-23] MEDS: Temazepam 15 MG Capsule PO (21:08)
[2021-04-23 21:12] VITALS: BP 130/86; PULSE 72; RESP 18; TEMP 36.6; O2SAT 98
[2021-04-24] VITALS (7 sets, daily range): BP systolic 146–165; BP diastolic 88–96; PULSE 62–85; RESP 18; TEMP 36.5–36.9; O2SAT 98–99
[2021-04-24] MEDS: 0.9% Normal Saline 1,000 ML 150 ML IV (03:13)
--- NOTE | 2021-04-24 06:23 | PCM.PN.HOSP ---
Objective Data Objective Data Vital Signs: Vital Signs Temp Pulse Resp BP Pulse Ox 98.4 F 62 18 146/88 H 98 04/24/21 03:14 04/24/21 05:03 04/24/21 03:14 04/24/21 03:14 04/24/21 03:14 Oxygen Delivery Method Room Air Weight: 164 lb 7.437 oz Body Mass Index (BMI) 22.5 Intake & Output: Intake and Output for Last 24 Hours 04/22/21 04/23/21 04/24/21 23:59 23:59 23:59 Intake Total 2950 / 3350 1317.5 / 1317.5 Balance 2950 / 3350 1317.5 / 1317.5 Lab / Micro Data Result Diagrams: 04/23/21 08:26 04/23/21 08:26 Labs: Laboratory Results - last 24 hr 04/23/21 08:26: WBC 5.5, RBC 5.42, Hgb 16.9 H, Hct 49.7, MCV 91.7, MCH 31.2, MCHC 34.0, RDW Std Deviation 40.5, RDW Coeff of Darren 12.0, Plt Count 221, MPV 9.7, Immature Gran % (Auto) 0.200, Neut % (Auto) 55.1, Lymph % (Auto) 33.2, [place] % (Auto) 9.7, Eos % (Auto) 1.1, Baso % (Auto) 0.7, Absolute Neuts (auto) 3.1, Absolute Lymphs (auto) 1.84, Nucleated RBC % 0 04/23/21 08:26: Sodium 139, Potassium 3.8, Chloride 106, Carbon Dioxide 28.0, Anion Gap 5, BUN 11, Creatinine 0.87, Estim Creat Clear Calc 88.57, Est GFR (MDRD) Af Amer 113, Est GFR (MDRD) Non-Af 93, BUN/Creatinine Ratio 12.6, Glucose 102, Calcium 9.9, Total Bilirubin 0.40, Direct Bilirubin 0.13, AST 31, ALT 58, Alkaline Phosphatase 114, Total Protein 8.1, Albumin 4.2, Globulin 3.9 04/23/21 08:26: Phenytoin 28.3 H Physical Exam Narrative Physical Examination: General: Awake, alert, oriented x 3 and cooperative, seated upright in the ED bed in no apparent distress, fatigued and anxious appearing. Skin: Normal color, normal turgor, no icterus, no cyanosis. HEENT: AT/NC, EOMI, PERRLA, mildly dry MM, no carotid bruits or JVD noted. Lungs: CTA bilaterally, moderate effort, mild decrease BL bases, no rales, ronchi or wheezing. Heart: Regular rate and rhythm; no gallop, rub audible. Abdomen: Soft, NTTP, ND, normal BS, no HSM. Extremities: No cyanosis, clubbing, or edema. Neurological: Patient awake, alert, oriented as noted, cognitive function appears intact; pupils equally reactive to light and accommodation, cranial nerves II-XII grossly normal, moving all 4 extremities, no focal deficits, strength preserved. Psychiatric: Affect appears flat, fatigued appearing, admits to anxiety and significant perseveration as well as insomnia, did review symptoms and following did discuss concerned that there is underlying depression. Assessment & Plan Assessment/Plan (1) Anxiety and depression: (2) Dilantin toxicity: QUALIFIERS: Encounter type: initial encounter Injury intent: accidental or unintentional Qualified Code(s): T42.0X1A - Poisoning by hydantoin derivatives, accidental (unintentional), initial encounter PLAN: The patient is a 65 y/o M w/ PMHx: Epilepsy, Former Tobacco use, HLD, Glaucoma who presents to the [facility] ED on 04/23/21 with several month history of progressively worsening flat affect, poor sleep, perseveration, self isolation and avoidance of any activities with PCP recent evaluation and diagnoses of anxiety and depression with outpatient initiation on Celexa which started approximately Friday of the week prior with onset per patient report significant increased anxious symptoms and mild agitation prompting him to stop his medication with last dose on Friday and present to the ED for evaluation. #1. Acute Mild Dilantin Toxicity with Epilepsy: Suspect the patient presentation with increased anxiety is not necessarily secondary to Dilantin mild increased level although patient in the past does note that when he is in the higher 20s he has been symptomatic but he describes this primarily as lightheadedness and dizziness which she is not having currently, to be cautious however will admit to medical surgical floor, maintain on monitor, continue judicious fluids and hold patient Dilantin regimen with repeat level in AM. If level has normalized we will plan discharge to home. #2. Anxiety and depression, uncontrolled: Per discussion with patient will stop patient's Celexa regimen but did discuss at length that sometimes with anxiety and depression patients can have mildly increased anxiety in the beginning initiation of these type of medications. Did discuss several options including local therapy options and his did take this information to make visits. Also discussed with the importance of making early follow-up with his PCP. #3. Elevated BP without hypertensive diagnosis: Patient with elevated blood pressures above goal in the emergency room, no prior history, will continue to closely monitor and if remains elevated may necessitate initiation of oral treatment, as needed IV hydralazine in interim. #4. Hyperlipidemia: We will continue patient on statin therapy #5. Former tobacco use: Encourage continued tobacco cessation. #6. Glaucoma, unclear specific type: We will continue patient home eyedrops. #7. DVT prophylaxis: Low risk, encourage ambulation.
[2021-04-24 07:13] LABS: Absolute Lymphocyte Count 1.97 X10^3/uL (0.83-4.51); Absolute Neutrophil Count 1.7 X10^3/uL (2.0-7.7); Basophil# 0.02 X10^3/uL; Basophil% 0.5 % (0-1); Eosinophil# 0.08 X10^3/uL; Eosinophils% 1.9 % (0-5); Hematocrit 44.1 % (40-54); Hemoglobin 14.5 g/dL (13.0-16.5); Lymphocyte # 1.97 X10^3/ul (0.83-4.51); Lymphocyte % 45.9 % (19-41); Mean Corp Hgb Conc 32.9 g/dL (32-36); Mean Corpuscular Volume 94.4 fL (80-94); Mean Platelet Vol. 10.4 fl (6.2-12.0); Monocyte# 0.51 X10^3/uL; Monocyte% 11.9 % (0-10); NRBC Flagged by Analyzer 0 % (0-5); Neutrophil # 1.71 X10^3/uL (2.7-7.7); Neutrophil % 39.8 % (47-70); Platelet Count 192 K/mm3 (150-450); RBC Distribution Width CV 12.3 % (11.6-14.6); RBC Distribution Width SD 42.7 fl (35.1-43.9); Red Blood Count 4.67 M/mm3 (4.6-6.2); White Blood Count 4.3 K/mm3 (4.4-11.0)
[2021-04-24 07:49] LABS: AST(SGOT) 29 U/L (15-37); Alanine Aminotransfer ALT/SGPT 44 U/L (16-61); Albumin, Serum 3.1 g/dL (3.2-5.0); Alkaline Phosphatase 92 U/L (45-117); Anion Gap 5 (5-15); BUN 16 mg/dL (7-18); Calcium,Total 8.5 mg/dL (8.5-10.1); Chloride 115 mmol/L (98-107); Creatinine, Serum 0.62 mg/dL (0.70-1.30); EST Glomerular Filtration Rate 140 mL/min (>60); Est Glom Filt Rate - Afr Amer 169 mL/min (>60); Estimated Creatinine Clearance 124.28 ml/min; Globulin 3.2 g/dL (2.2-4.2); Glucose 91 mg/dL (74-106); Potassium 4.7 mmol/L (3.5-5.1); Protein, Total 6.3 g/dL (6.4-8.2); Sodium Level 143 mmol/L (136-145)
[2021-04-24 07:54] LABS: Phenytoin (Dilantin) Level 16.6 mL (10.0-20.0)
[2021-04-24] MEDS: Senna/Docusate Sodium 1 Tablet 2 TABLET PO (09:30)
[2021-04-24] MEDS: Phenytoin Na 100 MG Capsule 200 MG PO (09:56)
--- NOTE | 2021-04-24 12:51 | DS.PCM_ITS ---
Providers Date of Admission: 04/23/21 Primary Care Physician: Dr. Rashawn Andino MD Reason For Visit: DILANTIN TOXICITY, MILD Diagnosis Discharge Diagnosis (1) Anxiety and depression: Status: Acute Code(s): F41.9 - Anxiety disorder, unspecified; F32.A - Depression, unspecified (2) Dilantin toxicity: Status: Acute Code(s): T42.0X1A - Poisoning by hydantoin derivatives, accidental (unintentional), initial encounter Qualifiers: Encounter type: initial encounter Injury intent: accidental or unintentional Qualified Code(s): T42.0X1A - Poisoning by hydantoin derivatives, accidental (unintentional), initial encounter Medications at Discharge Home Medications atorvastatin 20 mg PO QHS 12/19/20 dorzolamide-timolol 1 drp LEFT EYE QHS 12/19/20 phenytoin sodium extended [Dilantin Extended] 400 mg PO DAILY 12/19/20 phenytoin sodium extended [Dilantin Extended] 500 mg PO QODAY 12/19/20 brimonidine 1 drp LEFT EYE BID 01/02/21 latanoprost 1 drp LEFT EYE QPM 01/02/21 famciclovir 500 mg PO DAILY PRN PRN 04/23/21 polymyxin B sulf-trimethoprim 1 drp RIGHT EYE Q3H 04/23/21 prednisolone acetate (PF) 1 drp RIGHT EYE Q6H 04/23/21 temazepam 15 mg PO QHS PRN PRN 30 Days #30 cap 04/24/21 Hospital Course Operations None Procedures EKG Summary of Care Provided Minutes Spent on Discharge: 35 Hospital Course: DISCHARGE NOTE: Discharge Diagnoses: #1. Acute Mild Dilantin Toxicity with Epilepsy #2. Anxiety and depression, uncontrolled with no suicidal ideations and decline of medication usage #3. Acute insomnia, likely secondary to #2 #4. Elevated BP without hypertensive diagnosis #4. Hyperlipidemia #5. Former tobacco use #6. Glaucoma, unclear specific type Discharge Summary: The patient is a 65 y/o M w/ PMHx: Epilepsy, Former Tobacco use, HLD, Glaucoma who presented to the [facility] ED on 04/23/21 with several month history of progressively worsening flat affect, poor sleep, perseveration, self isolation and avoidance of any activities with PCP recent evaluation and diagnoses of anxiety and depression with outpatient initiation on Celexa which started approximately Friday of the week prior with onset per patient report significant increased anxious symptoms and mild agitation prompting him to stop his medication with last dose on Friday and present to the ED for evaluation. Patient admitted to medical surgical floor with suspicion that patient's increased anxiety is likely not secondary to Dilantin mild increase but more likely secondary to patient's uncontrolled anxiety and depression. Patient in the past with mildly elevated Dilantin levels has been more lightheaded and dizzy which is not currently having upon current presentation. Patient evening when Dilantin dose was held and he was hydrated as well as administered an IV fluid bolus with normalization of his level upon repeat check 04/24/2021 AM. Per discussion with patient he stopped his Celexa regimen because he felt like his increased anxiety was a side effect of this medication which he had only taken for 3 to 4 days. He did not make his physician aware that he discontinued this. Discussed different options including different medications and patient declined this. Given patient significant insomnia did offer him a sleeping pill. He had tried his 's trazodone without effect therefore temazepam was trialed and successful therefore a short course was discharged to home with the patient. Given his deferral of any usage of medications as had discussed other options including SSRI/SNRIs strongly encouraged follow-up with counseling to which he was amenable and several options were given. During the admission jass durant did have mildly elevated blood pressures therefore encouraged follow-up with primary care physician with repeat testing and if continued elevations evident treatment to be initiated given possibility that patient's increased anxiety was responsible for his current presentation elevation. Patient discharged to home with encouraged follow-up with primary care physician and counseling as noted. Discharge Time: > 35 Minutes DAY OF DISCHARGE PROGRESS NOTE: Subjective: Patient without acute event overnight per self and nursing report. Patient notes he slept well and upon evaluation in the morning says his anxiety was significantly reduced. Patient was laying in the bed cuddling with his . Patient denies fever, chills, nausea, emesis, abdominal pain, chest pain or dyspnea. Patient agreeable to discharge to home with follow-up with his primary care physician and counseling. Objective: T 90.4, heart 68, BP 146/88, respiratory rate 18, 98% on room air Physical Examination: General: awake, alert, oriented x 3 and cooperative, laying in the medical surgical bed, cuddling with his , no acute distress, notes he slept well and does not appear anxious or depressed at this moment. Skin: normal color, turgor, no icterus, cyanosis. HEENT: AT/NC, EOMI, PERRLA, MMM. Lungs: CTA bilaterally, moderate effort, mild decrease BL bases, no rales, ronchi or wheezing; Heart: Regular rate and rhythm; no gallop, rub audible. Abdomen: soft, NTTP, ND, normal BS. Extremities: no cyanosis, clubbing, or edema. Neurological: patient awake, alert, oriented x 3; cognitive function appears intact upon questioning,; pupils equally reactive to light and accomodation; cranial nerves II-XII grossly normal, moving all 4 extremities, strength appropriate. Psychiatric: affect appears improved, smiling, no acute evidence currently of depression or anxiety, notes feeling appropriate for discharge with plan for follow-up with counseling given history, again denies any suicidal ideation. Assessment and Plan: Please see hospital summary above. Weight / BMI Weight Weight: 164 lb 7.437 oz Body Mass Index (BMI) 22.5 ABG / Lab / Microbiology Data Result Diagrams: 04/24/21 06:30 04/24/21 06:30 Laboratory: Laboratory Results - last 24 hr 04/24/21 06:30: WBC 4.3 L, RBC 4.67, Hgb 14.5, Hct 44.1, MCV 94.4 H, MCH 31.0, MCHC 32.9, RDW Std Deviation 42.7, RDW Coeff of Darren 12.3, Plt Count 192, MPV 10.4, Immature Gran % (Auto) 0.000, Neut % (Auto) 39.8 L, Lymph % (Auto) 45.9 H, [place] % (Auto) 11.9 H, Eos % (Auto) 1.9, Baso % (Auto) 0.5, Absolute Neuts (auto) 1.7 L, Absolute Lymphs (auto) 1.97, Nucleated RBC % 0 04/24/21 06:30: Sodium 143, Potassium 4.7, Chloride 115 H, Carbon Dioxide 23.0, Anion Gap 5, BUN 16, Creatinine 0.62 L, Estim Creat Clear Calc 124.28, Est GFR (MDRD) Af Amer 169, Est GFR (MDRD) Non-Af 140, BUN/Creatinine Ratio 26.0 H, Glucose 91, Calcium 8.5, Total Bilirubin 0.20, AST 29, ALT 44, Alkaline Phosphatase 92, Total Protein 6.3 L, Albumin 3.1 L, Globulin 3.2, Albumin/Globulin Ratio 1.0 04/24/21 06:30: Phenytoin 16.6 D/C Instructions Discharge Diet: No restrictions Meaningful Use Info Meaningful Use Diagnoses (Choose all that apply): None applicable Discharge Plan Admission Admit Date/Time: 04/23/21 10:37 Primary Reason for Your Visit: Dilantin mild toxicity, Anxiety and Depression, Elevated BP without HTN Attending Provider: Melissa Gregory Primary Care Provider: Rashawn Andino Instructions Patient Instructions: Understanding Functional Dystonia, Counseling for Depression, ED Anxiety Reaction Additional Instructions / Restrictions: FOLLOW-UP INSTRUCTION: We strongly recommend you follow-up for ongoing counseling for depression and a nxiety. If you do return letter there are several other medications that may be initiated. We have given you a short course of sleeping medication (specifically not trazodone as this does not work for you prior per your report) given your history of significant recent insomnia. Additional regimen may be altered or started per your primary care physician. If you are started on another different type of medication for depression and anxiety it is important that you do not immediately stop the regimen but taper off if you have been on it for a while. During the admission you did have transiently elevated blood pressures, given the short admission what we do recommend is that you follow-up with primary care physician and if your blood pressure remains above goal but you be initiated on regimen for hypertension. Your Dilantin level is only mildly elevated and with p.m. hold on this regimen your phenytoin level completely normalized. We have resumed your home regimen however we strongly recommend that you follow-up with your physician and have a repeat level outpatient at follow-up or earlier if you become symptomatic with concerns. Discharge Orders/Prescriptions Prescriptions: New temazepam 15 mg Capsule 15 mg PO QHS PRN PRN (Reason: Insomnia) 30 Days Qty: 30 RF: 0 Continued atorvastatin 20 mg Tablet 20 mg PO QHS RF: 0 phenytoin sodium extended [Dilantin Extended] 100 mg Capsule 500 mg PO QODAY RF: 0 phenytoin sodium extended [Dilantin Extended] 100 mg Capsule 400 mg PO DAILY RF: 0 dorzolamide-timolol 22.3-6.8 mg/mL Drops 1 drp LEFT EYE QHS RF: 0 brimonidine 0.2 % Drops 1 drp LEFT EYE BID RF: 0 latanoprost 0.005 % Drops 1 drp LEFT EYE QPM RF: 0 famciclovir 500 mg tablet 500 mg PO DAILY PRN PRN (Reason: herpes) RF: 0 polymyxin B sulf-trimethoprim 10,000 unit- 1 mg/mL Drops 1 drp RIGHT EYE Q3H RF: 0 prednisolone acetate (PF) 1 % Drops,Suspension 1 drp RIGHT EYE Q6H RF: 0 Discontinued escitalopram oxalate 10 mg Tablet 10 mg PO DAILY RF: 0 Referrals / Follow Up: Rashawn Andino MD [Primary Care Provider] - (Follow-up within 3-5 days to review admission, discuss your recent self directed stop on new celexa regimen secondary to side effects and review plan for treatment your depression and anxiety as well as discuss further sleep aids. In addition please continue to follow your dilantin levels/regimen with primary care.) Disposition Disposition (needs filled in before D/C Order can be placed): Home, Self Care Charges/Coding Visit Charges OBSV E&M: 47231 Observation care discharge
--- NOTE | 2021-04-24 13:25 | CASEMGMT ---
Social Work Note SW updated to provide pt with list of Mental Health Agencies. SW attempted to meet with pt. Pt has been discharged and has left [facility]. Amberly Jennings CONSULTANT EDUCATION, [employer]IC [employer]S SUPERVISOR
== END 2021-04-24 13:07 | disposition home or self-care (01) ==
LOC: ED 10:04 → MS3 11:04
PROVIDERS: Admitting Provider Family Medicine; Emergency Provider Emergency Medicine; PCP Family Medicine; Visit Provider Family Medicine
DX: F41.9 Anxiety disorder, unspecified (principal); F32.A Depression, unspecified; T42.0X5A Adverse effect of hydantoin derivatives, initial encounter; G40.909 Epilepsy, unspecified, not intractable, without status epilepticus; E78.5 Hyperlipidemia, unspecified; H40.9 Unspecified glaucoma; R03.0 Elevated blood-pressure reading, without diagnosis of hypertension; G47.00 Insomnia, unspecified; Z79.899 Other long term (current) drug therapy; Z87.891 Personal history of nicotine dependence
CPT/HCPCS: 36415; 80048; 80053; 80076; 80185; 85025; 93005; 96361; 96374; 99218; 99251; 99284; J7030; A4216; G0378; G0463

== ENCOUNTER 2021-04-24 13:44 | Emergency (ER) | payer MEDICAID, SELFPAY ==
[2021-04-24 13:45] VITALS: BP 166/109; PULSE 80; RESP 18; TEMP 36.6; O2SAT 97; BMI 22.5
--- NOTE | 2021-04-24 15:11 | ED.RN ---
Pt denies suicidal ideations but admits to depression and frustration over taking dilantin intermodal dispatcher. Presented reality and informed patient he had many years to take action regarding the medicine or changing docs. He verbalized understanding and agrees. Patient at bedside.
--- NOTE | 2021-04-24 17:02 | EDS_ITS ---
HPI History of Present Illness Chief Complaint: Suicidal Informant: patient Onset/Context/Timing Onset: Days Context: Gradual Onset Timing: Continuous Quality: Lightheaded Location: Generalized Worsened by: Nothing Relieved by: Nothing Narrative Narrative: Patient presents with possible Dilantin side effects. Patient was admitted yesterday to the hospital for Dilantin toxicity. Patient was discharged today and then came to the emergency department. Patient states he feels like his Dilantin is causing him to have some twitching and shaking during his sleep. Patient states that he also feels lightheaded. Patient states he feels like he is off balance and walking to the left. Patient denies any suicidal or homicidal ideations. Patient states he feels hopeless because of this. [facility] Medical History Abscess, hepatic Epilepsy Former smoker Glaucoma H/O drainage of abscess High cholesterol Home Medications atorvastatin 20 mg PO QHS 12/19/20 [History Last Taken Unknown] dorzolamide-timolol 1 drp LEFT EYE QHS 12/19/20 [History Last Taken Unknown] phenytoin sodium extended [Dilantin Extended] 400 mg PO DAILY 12/19/20 [History Last Taken Unknown] phenytoin sodium extended [Dilantin Extended] 500 mg PO QODAY 12/19/20 [History Last Taken Unknown] brimonidine 1 drp LEFT EYE BID 01/02/21 [History Last Taken 01/02/21] latanoprost 1 drp LEFT EYE QPM 01/02/21 [History Last Taken 01/01/21] famciclovir 500 mg PO DAILY PRN PRN 04/23/21 [History Last Taken Unknown] polymyxin B sulf-trimethoprim 1 drp RIGHT EYE Q3H 04/23/21 [History Last Taken Unknown] prednisolone acetate (PF) 1 drp RIGHT EYE Q6H 04/23/21 [History Last Taken Unknown] temazepam 15 mg PO QHS PRN PRN 30 Days #30 cap 04/24/21 [Rx Last Taken Unknown] Allergy/AdvReac Type Severity Reaction Status Date / Time bee venom protein (honey bee) Allergy Anaphylaxis Verified 04/24/21 13:49 Family History (Updated 04/23/21 @ 14:[address] Melissa Gregory MD) Mother Cancer Hx leukemia, age 89. Father CVA (cerebral vascular accident) age 84. Surgical History S/P appendectomy Social History household members: spouse Smoking Status: Former smoker how long ago did patient quit smoking: Smoked 0.75 ppd since 19/19 years old, quit in 2016. alcohol intake: never substance use type: does not use ROS ROS ED Constitutional Constitutional ED: Denies chills or fever(s) Eyes Eyes: Denies blurry vision or change in vision ENT ENT ED: Denies rhinorrhea or sore throat Cardiovascular Cardiovascular: Denies chest pain or palpitations Respiratory/Chest Respiratory/Chest: Denies cough or dyspnea Gastrointestinal Gastrointestinal: Denies nausea or vomiting Genitourinary Genitourinary ED: Denies dysuria or hematuria Musculoskeletal Musculoskeletal: Denies back pain or neck pain Integumentary Reports rash; Denies abscess Neurologic Neurologic: Denies headache(s) or weakness Allergic/Immunologic Allergic/Immunologic ED: Denies mouth swelling or urticaria EXAM Physical Exam Const Vital Signs: 04/24/21 13:45 Temperature 98 F Temperature Source Temporal Pulse Rate 80 Respiratory Rate 18 Blood Pressure 166/109 H Blood Pressure Mean 128 Pulse Ox 97 Oxygen Delivery Method Room Air Positive well nourished and well developed General Appearance ED: well developed HEENT Reports moist mucous membranes Neck supple and no JVD Resp normal respiratory effort and clear to auscultation bilaterally Cardio regular rate, regular rhythm and no murmurs GI normal to inspection, nondistended, normoactive bowel sounds and non-tender Palpation: soft Extremity normal to inspection General Extremety ED: Negative for edema or tenderness General Extremity: Negative for edema Neuro oriented x3, CN's II-XII intact bilaterally and no sensory deficits noted Sensorium / Orientation: alert Motor Exam: strength 5/5 throughout Psych mental status grossly normal Activity / Motor Behavior: appropriate eye contact Thought Content: No suicidality, No homicidality and No hallucination(s) Skin no rashes or lesions noted MDM MDM MDM Narrative Medical decision making narrative: Patient denies any suicidal or homicidal id eation. However, because the patient had a feeling of hopelessness, Case was discussed with social work. She was in to evaluate the patient. She made a referral to partial hospitalization program. Patient was instructed to follow- up with this. Patient was instructed to follow-up with his primary care physician for further recommendations of his Dilantin. Patient and spouse understood and was agreeable with the plan. All questions were answered. Discharge Plan Triage Chief Complaint: Suicidal ED Provider: Ryder Herman Dx/Rx/DC Orders Clinical Impression: Anxiety and depression Instructions: ED Depression Prescriptions: No Action atorvastatin 20 mg Tablet 20 mg PO QHS RF: 0 phenytoin sodium extended [Dilantin Extended] 100 mg Capsule 500 mg PO QODAY RF: 0 phenytoin sodium extended [Dilantin Extended] 100 mg Capsule 400 mg PO DAILY RF: 0 dorzolamide-timolol 22.3-6.8 mg/mL Drops 1 drp LEFT EYE QHS RF: 0 brimonidine 0.2 % Drops 1 drp LEFT EYE BID RF: 0 latanoprost 0.005 % Drops 1 drp LEFT EYE QPM RF: 0 famciclovir 500 mg tablet 500 mg PO DAILY PRN PRN (Reason: herpes) RF: 0 polymyxin B sulf-trimethoprim 10,000 unit- 1 mg/mL Drops 1 drp RIGHT EYE Q3H RF: 0 prednisolone acetate (PF) 1 % Drops,Suspension 1 drp RIGHT EYE Q6H RF: 0 temazepam 15 mg Capsule 15 mg PO QHS PRN PRN (Reason: Insomnia) 30 Days Qty: 30 RF: 0 Primary Care Provider: Rashawn Andino Referrals: Rashawn Andino MD [Primary Care Provider] - 3-5 Days Disposition Disposition: Home, Self Care
--- NOTE | 2021-04-24 21:25 | CM.ED ---
Social Work Psychiatric Assessment: Referral Reason: Mental Health Referral Source: MD Chief Complaint: Patient said ?once I left the hospital, I felt anxious again? I felt like there is an issue with the Dilantin... it?s gotten to the point... it?s overtaken me. ?Patient then stated, ?I am toxic?. Patient said, ?for the last 2 years I twitch sometime and get down?. Marital /Social History: Patient reports he is to his Leonora, and he has a child, age 46. Living Situation: Patient resides in a house, with his , in [facility] Supports/Resources: Patient reports that his is his support. He said, ?I love her so much... she has always been there?. History: None Education and Employment History: Patient reports he graduated from high school. No learning issues. Patient said that he attended 2 years of business college. 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 Mental Health Treatment and History: Patient reports no psychiatric counseling, no therapy, no psych hospitalization, and no psychiatric meds. However, later patient?s reports that the PCP put patient on Lexapro for the past 1-2 weeks and he was ?anxious? and ?Jose like I have never seen him? and reports that she discontinued the medication for patient. Triggers: Patient reports his eye was operated on 04/04 and he was scared about going blind. Patient reports he is also scared about the medicine and ?is it too much?? Coping Skills: Watching TV, sleeping a lot Abuse Issues: Patient denied Substance Abuse: Patient denied Risk to Self/Others Suicidal: Patient denied any thoughts, plans or attempts. SW noted that patient had voiced SI earlier to the judicial administrative assistant and patient said ?No, I haven?t really... it was a cry out for help?. Homicidal: Denied Violence: Denied Mental Status Exam Orientation:x4 Memory: Intact Appearance/General Behavior: Wearing hospital gown. No hygiene concerns Mood/Affect: Neutral mood and affect Communication Pattern: Responded to questions Thought Process: Logical and Linear General Intellectual Functioning: Average Judgment: Impaired Insight: Impaired Recommendation: Patient reported that he doesn?t know how long he sleeps. He reports he feels rested when he first wakes up. He reports that he then ?gets anxious?. He reports hopelessness. Patient was asked about the report of SI and patient reports ?I was suicidal because I felt I needed help with Dilantin. I would like to find a neurologist who could help me immediately. I feel like I am in a trap?. SW again voiced patient?s statement reporting SI and patient said, ?no I don?t want to kill myself? and ?I feel I need help?. Patient?s indicated that patient needs an ??anti-anxiety medication?. Hospitalist was in the room, and she indicated that patient had denied need for anti-anxiety medication on the previous day. SW discussed concern that anti-anxiety medications are addictive. said ?honey, I have been on them for years and I am not addicted?. SW asked what she took, and she said, ?Prozac and Buspar?. SW explained that those are antidepressants and while Buspar may help with anxiety it is not an anti-anxiety medication. Patient and asked for anxiety medication and after speaking to the MD the MD advised the family to speak to psychiatrist regarding psych medication. SW explained [facility] Behavior[facility] and patient, and agreed to a referral. They were provided a handout on [facility]. Hospitalist said that patient has also been referred to [facility] for outpatient MH needs. Of note, while talking to this patient he received 2 phone calls, which he took, and advised the person on the phone that he was ?doing ok?. Patient reports he voiced frustration when he reported SI today. SW spoke to patient?s , and she voiced no concern about taking patient home, if they can get [address] and it is not dark as she does not drive after dark. Patient?s reports no concerns of taking patient home with the plan to get help from [facility] or [facility]. SW spoke to MD Fuller. Patient denied SI/HI to the MD. MD Fuller agrees with plan for discharge with referral to PHP/IOP. Plan: Home with PHP/IOP referral SW sent referral to Isabel/Buster at [facility] IOP/PHP. Nakia DENT
== END 2021-04-24 17:13 | disposition home or self-care (01) ==
PROVIDERS: Emergency Provider Emergency Medicine; PCP Family Medicine
DX: F41.9 Anxiety disorder, unspecified (principal); F32.A Depression, unspecified; Z87.891 Personal history of nicotine dependence
CPT/HCPCS: 99283

== ENCOUNTER 2021-05-06 09:03 | Emergency (ER) | payer MEDICAID, SELFPAY ==
[2021-05-06 09:04] VITALS: BP 155/103; PULSE 73; RESP 16; TEMP 36.1; O2SAT 98; BMI 22.5
--- NOTE | 2021-05-06 09:51 | EX.ED.DYSGE1 ---
HPI History of Present Illness Chief Complaint: Fatigue Narrative Narrative: 65-year-old male presenting with anxiety. He states he was started on something like Zoloft about 2 weeks ago by his primary care physician Dr. Andino. He states this is actually having the opposite effect and he is more anxious. He is pacing at night. He is having trouble sleeping. He states he feels fatigued. He states he is able to eat and drink but has decreased p.o. intake because he does not want to eat. He states that he might of taken too much Dilantin 2 days ago. He states that he this is occurred before. He states that sometimes he takes 2 pills and sometimes he takes 3/day. He sometimes gets confused and messes this up. His pills have been in a pill container to avoid this area however its not quite working. He states he is taking this for seizures and has had epilepsy since he was 19. He denies chest pain, palpitations, shortness of breath. No nausea or vomiting. No diarrhea or constipation. He is not homicidal or suicidal. [facility] TO [facility] Medical History Abscess, hepatic Anxiety and depression Epilepsy Former smoker Glaucoma H/O drainage of abscess High cholesterol Home Medications dorzolamide-timolol 1 drp LEFT EYE QHS 12/19/20 [History Last Taken Unknown] phenytoin sodium extended [Dilantin Extended] 400 mg PO DAILY 12/19/20 [History Last Taken Unknown] phenytoin sodium extended [Dilantin Extended] 500 mg PO QODAY 12/19/20 [History Last Taken Unknown] brimonidine 1 drp LEFT EYE BID 01/02/21 [History Last Taken 01/02/21] latanoprost 1 drp LEFT EYE QPM 01/02/21 [History Last Taken 01/01/21] famciclovir 500 mg PO DAILY PRN PRN 04/23/21 [History Last Taken Unknown] temazepam 15 mg PO QHS PRN PRN 30 Days #30 cap 04/24/21 [Rx Last Taken Unknown] escitalopram oxalate 10 mg PO DAILY 05/06/21 [History Last Taken Unknown] Allergy/AdvReac Type Severity Reaction Status Date / Time bee venom protein (honey bee) Allergy Anaphylaxis Verified 05/06/21 09:10 Family History Mother Cancer Hx leukemia, age 89. Father CVA (cerebral vascular accident) age 84. Surgical History S/P appendectomy Social History household members: spouse Smoking Status: Former smoker how long ago did patient quit smoking: Smoked 0.75 ppd since [age] years old, quit in 2016. alcohol intake: never substance use type: does not use ROS ROS ED Constitutional Constitutional ED: Denies chills or fever(s) Eyes Eyes: Denies blurry vision or change in vision ENT ENT ED: Denies rhinorrhea or sore throat Cardiovascular Cardiovascular: Denies chest pain or palpitations Respiratory/Chest Respiratory/Chest: Denies cough or dyspnea Gastrointestinal Gastrointestinal: Denies abdominal pain or nausea Genitourinary Genitourinary ED: Denies dysuria or hematuria Musculoskeletal Musculoskeletal: Denies arthralgias, back pain, myalgias or neck pain Integumentary Denies Abrasions or rash Neurologic Neurologic: Denies headache(s) or paresthesias Psychiatric Psychiatric: Reports anxiety; Denies suicidal ideation or suicidal thoughts EXAM Physical Exam Const Vital Signs: 05/06/21 09:04 05/06/21 10:09 Temperature 97.0 F L Temperature Source Temporal Pulse Rate 73 Respiratory Rate 16 Respiratory Effort Normal Respiratory Pattern Normal Blood Pressure 155/103 H Blood Pressure Mean 120 Pulse Ox 98 Oxygen Delivery Method Room Air Positive well nourished General Appearance ED: NAD; Negative for pallor HEENT Reports moist mucous membranes Negative for trauma Eyes PERRL and EOMs intact bilaterally General Eye ED: Negative for pale conjunctiva or scleral icterus Neck no lymphadenopathy and supple Chest Wall inspection of chest normal and palpation of chest normal Resp normal respiratory effort and clear to auscultation bilaterally Cardio regular rate and regular rhythm GI normal to inspection, nondistended, normoactive bowel sounds Neuro oriented x3, CN's II-XII intact bilaterally and no sensory deficits noted Sensorium / Orientation: alert Motor Exam: strength 5/5 throughout Psych mental status grossly normal Skin General Skin Exam: Negative for jaundice or pallor MDM MDM MDM Narrative Medical decision making narrative: Patient presenting with anxiety and states that his Lexapro is not working. I did confirm that he takes [address] Andino. Patient's lab work today shows that his CBC and BMP are normal. Phenytoin level is elevated at 33.5. Urinalysis is negative. Urine drug screen is negative. I did discuss with the patient that typically we might observe the patient overnight and recheck the levels in the morning while holding the phenytoin however given the state of the pandemic and lack of beds available I did discuss with him trying to come up with an alternative plan to his primary care doctor. After speaking with Dr. Andino he was amenable to checking outpatient lab work tomorrow. The patient will not take his Dilantin today or tomorrow morning prior to the test. He is to make an appointment with Dr. Andino for follow-up. Dr. Andino did state that his Lexapro was only started just a couple of weeks ago and it should not be working in full effect as of yet. He counseled me to have the patient continue taking this. Patient is amenable to this plan and will hold his Dilantin at home. He is discharged home. He is given return precautions. Impression: 1. Anxiety 2. Elevated Dilantin level Lab Data Attestation: I reviewed the patient's lab results. Labs: Laboratory Results - last 24 hr 05/06/21 05/06/21 05/06/21 10:10 10:10 10:10 WBC 4.7 RBC 5.36 Hgb 16.8 H Hct 49.0 MCV 91.4 MCH 31.3 MCHC 34.3 RDW Std Deviation 40.2 RDW Coeff of Darren 12.1 Plt Count 214 MPV 9.6 Immature Gran % (Auto) 0.200 Neut % (Auto) 47.0 Lymph % (Auto) 41.4 H Canadian % (Auto) 9.3 Eos % (Auto) 1.5 Baso % (Auto) 0.6 Absolute Neuts (auto) 2.2 Absolute Lymphs (auto) 1.95 Nucleated RBC % 0 Sodium 141 Potassium 3.7 Chloride 107 Carbon Dioxide 26.0 Anion Gap 8 BUN 9 Creatinine 0.76 Estim Creat Clear Calc 98.91 Est GFR (MDRD) Af Amer 131 Est GFR (MDRD) Non-Af 109 BUN/Creatinine Ratio 11.8 Glucose 114 H Calcium 9.5 Urine Color Urine Clarity Urine pH Ur Specific [place] Urine Protein Urine Glucose (UA) Urine Ketones Urine Occult Blood Urine Nitrite Urine Bilirubin Urine Urobilinogen Ur Leukocyte Esterase Urine RBC Urine WBC Ur Squamous Epith Cells Urine Bacteria Urine Mucus Urine Opiates Screen Urine Methadone Screen Ur Barbiturates Screen Phenytoin 33.5 H* Ur Phencyclidine Scrn Ur Amphetamines Screen U Methamphetamin-MDMA U Benzodiazepines Scrn Urine Cocaine Screen U Cannabinoids Screen Ur Drug Screen Comment Ethyl Alcohol < 3.0 05/06/21 05/06/21 10:20 10:20 WBC RBC Hgb Hct MCV MCH MCHC RDW Std Deviation RDW Coeff of Darren Plt Count MPV Immature Gran % (Auto) Neut % (Auto) Lymph % (Auto) Canadian % (Auto) Eos % (Auto) Baso % (Auto) Absolute Neuts (auto) Absolute Lymphs (auto) Nucleated RBC % Sodium Potassium Chloride Carbon Dioxide Anion Gap BUN Creatinine Estim Creat Clear Calc Est GFR (MDRD) Af Amer Est GFR (MDRD) Non-Af BUN/Creatinine Ratio Glucose Calcium Urine Color Yellow Urine Clarity Clear Urine pH 8.0 Ur Specific [place] 1.015 Urine Protein Negative Urine Glucose (UA) Normal Urine Ketones Negative Urine Occult Blood 10 H Urine Nitrite Negative Urine Bilirubin Negative Urine Urobilinogen Normal Ur Leukocyte Esterase 25 H Urine RBC 0 SEEN Urine WBC 0-5 SEEN Ur Squamous Epith Cells 0 SEEN Urine Bacteria 0 SEEN Urine Mucus 0 SEEN Urine Opiates Screen NEGATIVE Urine Methadone Screen NEGATIVE Ur Barbiturates Screen NEGATIVE Phenytoin Ur Phencyclidine Scrn NEGATIVE Ur Amphetamines Screen NEGATIVE U Methamphetamin-MDMA NEGATIVE U Benzodiazepines Scrn NEGATIVE Urine Cocaine Screen NEGATIVE U Cannabinoids Screen NEGATIVE Ur Drug Screen Comment Ethyl Alcohol Discharge Plan Triage Chief Complaint: Fatigue ED Provider: Virgilio Scanlon Dx/Rx/DC Orders Prescriptions: No Action phenytoin sodium extended [Dilantin Extended] 100 mg Capsule 500 mg PO QODAY RF: 0 phenytoin sodium extended [Dilantin Extended] 100 mg Capsule 400 mg PO DAILY RF: 0 dorzolamide-timolol 22.3-6.8 mg/mL Drops 1 drp LEFT EYE QHS RF: 0 brimonidine 0.2 % Drops 1 drp LEFT EYE BID RF: 0 latanoprost 0.005 % Drops 1 drp LEFT EYE QPM RF: 0 famciclovir 500 mg tablet 500 mg PO DAILY PRN PRN (Reason: herpes) RF: 0 temazepam 15 mg Capsule 15 mg PO QHS PRN PRN (Reason: Insomnia) 30 Days Qty: 30 RF: 0 escitalopram oxalate 10 mg Tablet 10 mg PO DAILY RF: 0 Primary Care Provider: Rashawn Andino Referrals: Rashawn Andino MD [Primary Care Provider] - Activity Restrictions/Additional Instructions: Your Dilantin level was elevated at 33.5 today. I spoke with your primary care physician, Dr. Andino and he states that he can have repeat lab work done for the next couple of days as an outpatient. Please do not take any Dilantin today or tomorrow prior to testing. Please call his office tomorrow morning to set up an appointment. Disposition Disposition: Home, Self Care
[2021-05-06 10:18] LABS: Absolute Lymphocyte Count 1.95 X10^3/uL (0.83-4.51); Absolute Neutrophil Count 2.2 X10^3/uL (2.0-7.7); Basophil# 0.03 X10^3/uL; Basophil% 0.6 % (0-1); Eosinophil# 0.07 X10^3/uL; Eosinophils% 1.5 % (0-5); Hemoglobin 16.8 g/dL (13.0-16.5); Lymphocyte # 1.95 X10^3/ul (0.83-4.51); Lymphocyte % 41.4 % (19-41); Mean Corp Hgb Conc 34.3 g/dL (32-36); Mean Corpuscular Hgb 31.3 pg (27.0-32.0); Mean Corpuscular Volume 91.4 fL (80-94); Mean Platelet Vol. 9.6 fl (6.2-12.0); Monocyte# 0.44 X10^3/uL; Monocyte% 9.3 % (0-10); NRBC Flagged by Analyzer 0 % (0-5); Neutrophil # 2.21 X10^3/uL (2.7-7.7); Platelet Count 214 K/mm3 (150-450); RBC Distribution Width CV 12.1 % (11.6-14.6); RBC Distribution Width SD 40.2 fl (35.1-43.9); Red Blood Count 5.36 M/mm3 (4.6-6.2); White Blood Count 4.7 K/mm3 (4.4-11.0)
[2021-05-06 10:31] LABS: Anion Gap 8 (5-15); BUN 9 mg/dL (7-18); BUN/Creat Ratio 11.8 RATIO (10-20); Calcium,Total 9.5 mg/dL (8.5-10.1); Chloride 107 mmol/L (98-107); Creatinine, Serum 0.76 mg/dL (0.70-1.30); EST Glomerular Filtration Rate 109 mL/min (>60); Est Glom Filt Rate - Afr Amer 131 mL/min (>60); Estimated Creatinine Clearance 98.91 ml/min; Glucose 114 mg/dL (74-106); Potassium 3.7 mmol/L (3.5-5.1); Sodium Level 141 mmol/L (136-145)
[2021-05-06 10:35] LABS: Bacteria 0 SEEN /hpf (None Seen); Mucous, Urine 0 SEEN /hpf (<or=2+); Red Blood Cells-Urine 0 SEEN /hpf (0-5); Squamous Epithelial Cells - UA 0 SEEN /hpf (0-5)
[2021-05-06 10:36] LABS: Color, Urine Yellow (Yellow); Glucose, Dipstick Normal (Normal); Ketone-Dipstick Negative (Negative); Leukocyte Esterase-Dipstick 25 /ul (Negative); Nitrite-Dipstick Negative (Negative); Occult Blood-Urine 10 /ul (Negative); Protein-Dipstick Negative (Negative); Specific Gravity, Urine 1.015 (1.002-1.030); Urine Bilirubin Dipstick Negative (Negative); Urine Clarity Clear (Clear); Urine Urobilinogen Normal (Normal)
[2021-05-06 10:47] LABS: Alcohol, Blood (Medical)-Serum < 3.0 mg/dL; Phenytoin (Dilantin) Level 33.5 mL (10.0-20.0)
[2021-05-06 10:48] LABS: Amphetamine Urine VISTA NEGATIVE (<1000 ng/mL); Barbiturate Urine VISTA NEGATIVE (< 200 ng/mL); Benzodiazepine Urine VISTA NEGATIVE (< 200 ng/mL); Cocaine Urine VISTA NEGATIVE (< 300 ng/mL); Ecstacy Urine VISTA NEGATIVE (< 500 ng/mL); Methadone Urine VISTA NEGATIVE (< 300 ng/mL); PCP Urine VISTA NEGATIVE (< 25 ng/mL); THC Urine VISTA NEGATIVE (< 50 ng/mL); Vista UDS pH Range 7
[2021-05-06 10:50] LABS: White Blood Cells 0-5 SEEN /hpf (0-5)
--- NOTE | 2021-05-06 11:00 | NURSING ---
PAGED DR THOMAS THROUGH HIS ANSWERING SERVICE
[2021-05-06 11:59] VITALS: BP 168/102; PULSE 62; RESP 16
== END 2021-05-06 12:00 | disposition home or self-care (01) ==
PROVIDERS: Emergency Provider Student in an Organized Health Care Education/Training Program; PCP Family Medicine
DX: F41.9 Anxiety disorder, unspecified (principal); F32.A Depression, unspecified; G40.909 Epilepsy, unspecified, not intractable, without status epilepticus; Z79.899 Other long term (current) drug therapy; Z87.891 Personal history of nicotine dependence
CPT/HCPCS: 36415; 80048; 80185; 80307; 81001; 82077; 85025; 99282

== ENCOUNTER 2021-05-08 09:14 | Emergency (ER) | payer MEDICAID, SELFPAY ==
[2021-05-08 09:15] VITALS: BP 148/111; PULSE 80; RESP 16; TEMP 36.3; O2SAT 98; BMI 21.5
--- NOTE | 2021-05-08 09:35 | EX.ED.VIS.PS ---
HPI HPI - Psych History of Present Illness Chief Complaint: Mental Health Informant: patient Onset/Context/Timing Onset: Weeks Context: Gradual Onset Timing: Continuous Current Severity: Mild Maximum Severity: Mild Associated Symptoms Associated Symptoms - Psych: Positive for Depressed and Decreased Interest; Negative for Flight of Ideas, Pressured Speech, Agitated, Angry, Hostile, Threatening, Confusion, Paranoia, Visual Hallucinations and Auditory Hallucinations Narrative Narrative: 65-year-old male history of anxiety and depression. History of seizure disorder since 19 years old for which he is on Dilantin. States I am weak, tired and confused. He denies any recent illness. Denies any vomiting diarrhea or fever. States since October after he had an appendectomy he has lost 50 pounds. He said at times he just want a shot my eyes and not open them again. He denies any attempts. He denies any history of prior suicide attempts. He denies any recent hospitalization. Prior similar symptoms: Yes Recent Illness/Hospitalization: No PFSH PFSH Medical History Abscess, hepatic Anxiety and depression Epilepsy Former smoker Glaucoma H/O drainage of abscess High cholesterol Home Medications dorzolamide-timolol 1 drp LEFT EYE QHS 12/19/20 [History Last Taken Unknown] phenytoin sodium extended [Dilantin Extended] 400 mg PO DAILY 12/19/20 [History Last Taken Unknown] phenytoin sodium extended [Dilantin Extended] 500 mg PO QODAY 12/19/20 [History Last Taken Unknown] brimonidine 1 drp LEFT EYE BID 01/02/21 [History Last Taken 01/02/21] latanoprost 1 drp LEFT EYE QPM 01/02/21 [History Last Taken 01/01/21] famciclovir 500 mg PO DAILY PRN PRN 04/23/21 [History Last Taken Unknown] temazepam 15 mg PO QHS PRN PRN 30 Days #30 cap 04/24/21 [Rx Last Taken Unknown] escitalopram oxalate 10 mg PO DAILY 05/06/21 [History Last Taken Unknown] Allergy/AdvReac Type Severity Reaction Status Date / Time bee venom protein (honey bee) Allergy Anaphylaxis Verified 05/08/21 09:21 Family History Mother Cancer Hx leukemia, age 89. Father CVA (cerebral vascular accident) age 84. Surgical History S/P appendectomy Social History household members: spouse Smoking Status: Former smoker how long ago did patient quit smoking: Smoked 0.75 ppd since [age] years old, quit in 2016. alcohol intake: never substance use type: does not use ROS ROS ED ROS Narrative Weight loss. Review of Systems ROS Unobtainable: Denies due to encephalopathy Constitutional Constitutional ED: Denies fever(s) Eyes Eyes: Denies change in vision ENT ENT ED: Denies ear pain Cardiovascular Cardiovascular: Denies chest pain or palpitations Respiratory/Chest Respiratory/Chest: Denies cough, dyspnea or sputum Gastrointestinal Gastrointestinal: Denies abdominal pain, constipation, diarrhea, nausea or vomiting Genitourinary Genitourinary ED: Denies dysuria or hematuria Musculoskeletal Musculoskeletal: Denies myalgias Integumentary Denies rash Neurologic Neurologic: Denies headache(s) Psychiatric Psychiatric: Denies depression Endocrine Endocrinology: Denies polyuria Hematologic/Lymphatic Hematologic/Lymphatic: Denies easy bruising Allergic/Immunologic Allergic/Immunologic ED: Denies urticaria EXAM Physical Exam Narrative Exam Narrative: 65-year-old male no acute distress. Vital signs stable afebrile. Initial blood pressure is elevated at 148/111. He does not look septic or toxic. He is in no acute distress. H EENT exam unremarkable. Neck nontender. Lungs clear to auscultation bilaterally. Heart regular rhythm no murmur. Chest were nontender. He is a thin. Abdomen soft nontender normal bowel sounds no peritoneal signs. Patient moving all 4 extremities. Nontender no edema. Back nontender. Neurologically he is awake and alert. He is moving all 4 extremities. He has no focal motor deficits. Const Vital Signs: 05/08/21 09:15 05/08/21 11:43 05/08/21 12:10 Temperature 97.4 F L Temperature Source Temporal Pulse Rate 80 63 Respiratory Rate 16 16 18 Blood Pressure 148/111 H 163/101 H Blood Pressure Mean 123 121 Pulse Ox 98 98 Oxygen Delivery Method Room Air Room Air 05/08/21 14:05 05/08/21 15:04 Temperature Temperature Source Pulse Rate 75 Respiratory Rate 16 18 Blood Pressure 141/85 H Blood Pressure Mean 103 Pulse Ox 97 Oxygen Delivery Method Room Air Positive well nourished and well developed; Negative for obese, cachectic, contractures or unkempt General Appearance ED: well developed and NAD; Negative for unkempt, cachectic, contractures or pallor Nutritional Appearance: Negative for cachectic or obese HEENT Reports moist mucous membranes normocephalic and atraumatic; Negative for trauma or tenderness Eyes PERRL and EOMs intact bilaterally Neck no lymphadenopathy, supple and no JVD General: Negative for tenderness Resp normal respiratory effort and clear to auscultation bilaterally Auscultation: Negative for rales, rhonchi or wheezes Cardio S1 normal heart sound, S2 normal heart sound and no murmurs Rate: regular rate Rhythm: regular rhythm GI non-tender, non-distended and no masses Inspection: Negative for abdominal distention Auscultation: normoactive bowel sounds Palpation: soft; Negative for tender or guarding Back/Spine no CVA tenderness General Back: Negative for CVA tenderness Extremity normal to inspection General Extremety ED: Negative for edema or tenderness General Extremity: Negative for edema Neuro oriented x3 Sensorium / Orientation: alert, oriented to person, oriented to place and oriented to time; Negative for orientation impaired, confused, lethargic or stuporous Motor Exam: strength 5/5 throughout Psych mental status grossly normal and thought process normal; Negative for cooperative, affect normal or speech normal Appearance: Negative for unkempt Skin General Skin Exam: Negative for jaundice or pallor Lesions: no lesions Rashes: no rashes MDM MDM MDM Narrative Medical decision making narrative: 65-year-old male depressed. Benign exam. Mental health labs will be obtained. I will have him evaluated by the social sciences department chair. Patient was awaiting social sciences department chair evaluation. Lab Data Attestation: I reviewed the patient's lab results. Lab results narrative: CBC shows a white count of 3. Hemoglobin 16. Electrolytes unremarkable gap of 9 normal BUN and creatinine. Glucose 115. Dilantin level was slightly elevated at 26.3. Alcohol negative. Tox screen negative except for positive for cannabis. CT of the brain is read with the radiologist reviewed by me showed no acute abnormality. Covid test was negative. Labs: Laboratory Results - last 24 hr 05/08/21 05/08/21 05/08/21 09:40 09:40 09:40 WBC 3.6 L RBC 5.44 Hgb 16.8 H Hct 49.2 MCV 90.4 MCH 30.9 MCHC 34.1 RDW Std Deviation 39.9 RDW Coeff of Darren 12.1 Plt Count 205 MPV 9.3 Immature Gran % (Auto) 0.300 Neut % (Auto) 45.0 L Lymph % (Auto) 43.6 H [place] % (Auto) 9.4 Eos % (Auto) 1.4 Baso % (Auto) 0.3 Absolute Neuts (auto) 1.6 L Absolute Lymphs (auto) 1.58 Nucleated RBC % 0 Sodium 140 Potassium 3.7 Chloride 106 Carbon Dioxide 25.0 Anion Gap 9 BUN 10 Creatinine 0.78 Estim Creat Clear Calc 92.08 Est GFR (MDRD) Af Amer 128 Est GFR (MDRD) Non-Af 106 BUN/Creatinine Ratio 12.8 Glucose 115 H Calcium 9.4 Urine Opiates Screen Urine Methadone Screen Ur Barbiturates Screen Phenytoin 26.3 H Ur Phencyclidine Scrn Ur Amphetamines Screen U Methamphetamin-MDMA U Benzodiazepines Scrn Urine Cocaine Screen U Cannabinoids Screen Ur Drug Screen Comment Ethyl Alcohol < 3.0 05/08/21 10:00 WBC RBC Hgb Hct MCV MCH MCHC RDW Std Deviation RDW Coeff of Darren Plt Count MPV Immature Gran % (Auto) Neut % (Auto) Lymph % (Auto) [place] % (Auto) Eos % (Auto) Baso % (Auto) Absolute Neuts (auto) Absolute Lymphs (auto) Nucleated RBC % Sodium Potassium Chloride Carbon Dioxide Anion Gap BUN Creatinine Estim Creat Clear Calc Est GFR (MDRD) Af Amer Est GFR (MDRD) Non-Af BUN/Creatinine Ratio Glucose Calcium Urine Opiates Screen NEGATIVE Urine Methadone Screen NEGATIVE Ur Barbiturates Screen NEGATIVE Phenytoin Ur Phencyclidine Scrn NEGATIVE Ur Amphetamines Screen NEGATIVE U Methamphetamin-MDMA NEGATIVE U Benzodiazepines Scrn NEGATIVE Urine Cocaine Screen NEGATIVE U Cannabinoids Screen POSITIVE H Ur Drug Screen Comment Ethyl Alcohol Discharge Plan Triage Chief Complaint: Mental Health Other Complaint: Weakness ED Provider: Adam Herrera Dx/Rx/DC Orders Clinical Impression: Depression Instructions: ED Depression Prescriptions: No Action phenytoin sodium extended [Dilantin Extended] 100 mg Capsule 500 mg PO QODAY RF: 0 phenytoin sodium extended [Dilantin Extended] 100 mg Capsule 400 mg PO DAILY RF: 0 dorzolamide-timolol 22.3-6.8 mg/mL Drops 1 drp LEFT EYE QHS RF: 0 brimonidine 0.2 % Drops 1 drp LEFT EYE BID RF: 0 latanoprost 0.005 % Drops 1 drp LEFT EYE QPM RF: 0 famciclovir 500 mg tablet 500 mg PO DAILY PRN PRN (Reason: herpes) RF: 0 temazepam 15 mg Capsule 15 mg PO QHS PRN PRN (Reason: Insomnia) 30 Days Qty: 30 RF: 0 escitalopram oxalate 10 mg Tablet 10 mg PO DAILY RF: 0 Primary Care Provider: Rashawn Andino Referrals: Rashawn Andino MD [Primary Care Provider] -
[2021-05-08 09:49] LABS: Absolute Lymphocyte Count 1.58 X10^3/uL (0.83-4.51); Absolute Neutrophil Count 1.6 X10^3/uL (2.0-7.7); Basophil# 0.01 X10^3/uL; Basophil% 0.3 % (0-1); Eosinophil# 0.05 X10^3/uL; Eosinophils% 1.4 % (0-5); Hematocrit 49.2 % (40-54); Hemoglobin 16.8 g/dL (13.0-16.5); Lymphocyte # 1.58 X10^3/ul (0.83-4.51); Lymphocyte % 43.6 % (19-41); Mean Corp Hgb Conc 34.1 g/dL (32-36); Mean Corpuscular Hgb 30.9 pg (27.0-32.0); Mean Corpuscular Volume 90.4 fL (80-94); Mean Platelet Vol. 9.3 fl (6.2-12.0); Monocyte# 0.34 X10^3/uL; Monocyte% 9.4 % (0-10); NRBC Flagged by Analyzer 0 % (0-5); Neutrophil # 1.63 X10^3/uL (2.7-7.7); Platelet Count 205 K/mm3 (150-450); RBC Distribution Width CV 12.1 % (11.6-14.6); RBC Distribution Width SD 39.9 fl (35.1-43.9); Red Blood Count 5.44 M/mm3 (4.6-6.2); White Blood Count 3.6 K/mm3 (4.4-11.0)
[2021-05-08 10:03] LABS: Anion Gap 9 (5-15); BUN 10 mg/dL (7-18); BUN/Creat Ratio 12.8 RATIO (10-20); Calcium,Total 9.4 mg/dL (8.5-10.1); Chloride 106 mmol/L (98-107); Creatinine, Serum 0.78 mg/dL (0.70-1.30); EST Glomerular Filtration Rate 106 mL/min (>60); Est Glom Filt Rate - Afr Amer 128 mL/min (>60); Estimated Creatinine Clearance 92.08 ml/min; Glucose 115 mg/dL (74-106); Potassium 3.7 mmol/L (3.5-5.1); Sodium Level 140 mmol/L (136-145)
[2021-05-08 10:20] LABS: Alcohol, Blood (Medical)-Serum < 3.0 mg/dL; Phenytoin (Dilantin) Level 26.3 mL (10.0-20.0)
[2021-05-08 10:29] LABS: Amphetamine Urine VISTA NEGATIVE (<1000 ng/mL); Barbiturate Urine VISTA NEGATIVE (< 200 ng/mL); Benzodiazepine Urine VISTA NEGATIVE (< 200 ng/mL); Cocaine Urine VISTA NEGATIVE (< 300 ng/mL); Ecstacy Urine VISTA NEGATIVE (< 500 ng/mL); Methadone Urine VISTA NEGATIVE (< 300 ng/mL); PCP Urine VISTA NEGATIVE (< 25 ng/mL); THC Urine VISTA POSITIVE (< 50 ng/mL); Vista UDS pH Range 6
[2021-05-08 11:43] VITALS: RESP 16
[2021-05-08 12:10] VITALS: BP 163/101; PULSE 63; RESP 18; O2SAT 98
--- NOTE | 2021-05-08 13:15 | ED.RN ---
THIS RN WENT BACK INTO ROOM AND PT NO LONGER THERE, BELONGINGS GONE AND IV WAS PULLED OUT. PT NOT PINK SLIPPED AT THIS TIME.PT LEFT PRIOR TO BEING DISCHARGED
--- NOTE | 2021-05-08 13:40 | ED.RN ---
PT BACK IN ROOM. BELONGINGS REMOVED FROM ROOM AND PT PLACED IN GOWN.
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
--- NOTE | 2021-05-08 13:53 | CT_ITS ---
STUDY: CT BRAIN WITHOUT CONTRAST REASON FOR EXAM: Male, 65 years old. TRAUMA RADIATION DOSAGE (If Supplied By Facility): CTDIvol = ( 47.06 ) mGy, DLP = ( 872.68 ) mGycm TECHNIQUE: Transaxial CT imaging of the brain was performed without administration of intravenous contrast material. Individualized dose optimization techniques were used for this CT. COMPARISON: No relevant priors. FINDINGS: Normal soft tissue structures. Normal calvarium. Normal size ventricles and extra-axial spaces for the patient''s age. Normal white matter tracts of the cerebral hemispheres. Normal basal ganglia and thalami. Normal brainstem. Normal cerebellum. There is no intracranial hemorrhage. There are no findings of an acute ischemic infarction. Normal visualized paranasal sinuses. CT/Brain/Head without Contrast IMPRESSION: Normal unenhanced CT scan of the brain. Electronically Signed: Leo Mckoy MD at 14:21 EST , Service support ,
--- NOTE | 2021-05-08 14:00 | CM.ED ---
SOCIAL WORK ASSESSMENT Referral Source: Dr. Herrera/nursing Reason for Consult: Mental Health Evaluation Chief Compliant: Patient presents to [facility] ER confusion and disorientation. Patient stating ?something wrong with my brain.? Patient voiced feelings of ?just don?t wanna live.? Patient recently started on anti-depressant and believes is having ?adverse effects.? Marital/Social History: Living Situation: Home with Support/Resources: Limited History: None Education and Employment History: 2 years of college, [employer] Mental Health Treatment/History: Depression, anxiety, panic attacks. Patient states PCP-Dr. Andino recently started patient on anti-depressant. Patient believes medication is having ?adverse effects.? Patient reports has never been hospitalized for mental health. Patient does not feel safe at home. Triggers/Stressors: ?everything? Coping Skills: ?none? Abuse Issues: Patient denies any history of emotional, physical, or sexual abuse. Substance Abuse History: ?some alcohol?. Patient reports alcohol has not ?been an issue.? Risk to Self/Others: Suicidal- Patient voices suicidal thoughts. Patient denies plan or intent. Patient voices feelings of helplessness and hopelessness. Patient states ?I?m a burden to my .? Homicidal- Patient denies homicidal ideation. Mental Status Exam: Orientation- A&Ox3 Memory: fair Appearance/General Behavior: disheveled Mood/Affect: bizarre, flat, depressed Communication Pattern: responds to questions Thought Process: when asked about hallucinations patient stated, ?I?m not sure.? General Intellectual Functioning: Average Judgement: poor Insight: poor Assessment: Dr. Herrera referred patient to this worker for mental health evaluation. Patient voices feelings of helplessness and hopelessness. Patient believes to be a ?burden to my .? Patient admits to suicidal thoughts. Denies plan or intent. Patient voiced has been having nightmares and panic attacks. Patient reports recently started on anti-depressant and believes is having ?adverse effects.? Spoke with who reports patient ?has not been himself.? Collaboration with Dr. Herrera. Patient has been Deweese Slipped. This worker to facilitate placement. Plan: Referral for inpatient psych D. Torres, HEATING ELEMENT BUILDER, MICROSTRATEGY ARCHITECT
[2021-05-08 14:05] VITALS: RESP 16
[2021-05-08] MEDS: Phenytoin Na 100 MG Capsule 400 MG PO (15:00)
[2021-05-08] MEDS: Escitalopram Oxalate 10 MG Tablet PO (15:01)
[2021-05-08 15:04] VITALS: BP 141/85; PULSE 75; RESP 18; O2SAT 97
--- NOTE | 2021-05-08 15:21 | CM.ED ---
Referral faxed to [facility]. Pending review at this time. Chapincito Macdonald, AIR BREAKER OPERATOR, CARPENTER SHIP
--- NOTE | 2021-05-08 16:38 | CM.ED ---
SOCIAL WORK Call from [facility] requesting EKG. Dr. Major who took over for Dr. Herrera. Will fax result once obtained. Chapincito Macdonald, DRIVER'S LICENSE REVIEWING OFFICER, SUPERVISOR FILES
--- NOTE | 2021-05-08 16:57 | CM.ED ---
SOCIAL WORK EKG faxed to [facility]. Chapincito Macdonald, KID CLUB ATTENDANT, ROTARY DRILLER
--- NOTE | 2021-05-08 17:38 | CM.ED ---
SOCIAL WORK Patient accepted to [facility] by Dr. Hernandes. Nurse to call report to [phone]. Call to [facility], ETA 90 minutes. Patient and updated. Chapincito Macdonald MSW, CLAIM EXAMINER
[2021-05-08] MEDS: Dorzolamide HCL/Timolol 10 ml Bottle 1 DRP LEFT EYE (18:03)
[2021-05-08 19:04] VITALS: BP 151/94; PULSE 76; RESP 18; TEMP 36.7; O2SAT 97
--- NOTE | 2021-05-10 16:45 | CM.ED ---
TRAMAINE received call and voice mail from Art Renae. She said that patient is not getting psychiatric treatment and it is not what I thought he was going to get. Per chart patient was sent to [facility]. Art said that patient has only one shoe. Art said just because we turn 61 doesn't mean we dont' have feeling anymore. Art was advised about limits with patient and she said I worked at [employer] for 25 years I know what they can have. SW explained that if patient was pink slipped than he can stay up to 72 hours for observations (weekend and holidays don't count). SW encouraged her to contact [facility] at facility and to also ensure that patient had signed a GERARDO. No further SW needs. Art thanked this typewriter ribbon winder for update. Emotional support provided. Nakia DENT
== END 2021-05-08 19:05 ==
PROVIDERS: Emergency Provider Emergency Medicine; PCP Family Medicine
DX: F32.A Depression, unspecified (principal); F41.9 Anxiety disorder, unspecified; G40.909 Epilepsy, unspecified, not intractable, without status epilepticus; Z79.899 Other long term (current) drug therapy; Z87.891 Personal history of nicotine dependence
CPT/HCPCS: 70450; 80048; 80185; 80307; 82077; 85025; 87426; 93005; 99285; A4216

== ENCOUNTER 2021-07-12 19:09 | Emergency (ER) | payer MEDICARE, OTHER, SELFPAY ==
[2021-07-12 19:10] VITALS: BP 109/67; PULSE 80; RESP 16; TEMP 35.8; O2SAT 97; BMI 21.5
[2021-07-12] MEDS: 0.9% Normal Saline 1,000 ML 1000 ML IV (19:35)
[2021-07-12 19:46] LABS: Bacteria 0 SEEN /hpf (None Seen); Squamous Epithelial Cells - UA 0 SEEN /hpf (0-5)
[2021-07-12 19:47] LABS: Color, Urine Yellow (Yellow); Glucose, Dipstick Normal (Normal); Ketone-Dipstick Negative (Negative); Leukocyte Esterase-Dipstick 25 /ul (Negative); Nitrite-Dipstick Negative (Negative); Occult Blood-Urine 25 /ul (Negative); Protein-Dipstick 15 mg/dl (Negative); Urine Bilirubin Dipstick Negative (Negative); Urine Clarity Clear (Clear); Urine Urobilinogen 1 mg/dl (Normal)
[2021-07-12 19:51] LABS: Absolute Lymphocyte Count 2.14 X10^3/uL (0.83-4.51); Absolute Neutrophil Count 1.5 X10^3/uL (2.0-7.7); Basophil# 0.02 X10^3/uL; Basophil% 0.5 % (0-1); Eosinophil# 0.12 X10^3/uL; Eosinophils% 2.8 % (0-5); Hematocrit 41.5 % (40-54); Hemoglobin 14.3 g/dL (13.0-16.5); Lymphocyte # 2.14 X10^3/ul (0.83-4.51); Lymphocyte % 50.7 % (19-41); Mean Corp Hgb Conc 34.5 g/dL (32-36); Mean Corpuscular Hgb 32.5 pg (27.0-32.0); Mean Corpuscular Volume 94.3 fL (80-94); Mean Platelet Vol. 10.1 fl (6.2-12.0); Monocyte% 9.5 % (0-10); NRBC Flagged by Analyzer 0 % (0-5); Neutrophil # 1.53 X10^3/uL (2.7-7.7); Neutrophil % 36.3 % (47-70); Platelet Count 183 K/mm3 (150-450); RBC Distribution Width CV 13.2 % (11.6-14.6); RBC Distribution Width SD 45.3 fl (35.1-43.9); White Blood Count 4.2 K/mm3 (4.4-11.0)
[2021-07-12 20:01] LABS: ALB/GLOB Ratio 1.2 RATIO (0.9-2.4); AST(SGOT) 21 U/L (15-37); Alanine Aminotransfer ALT/SGPT 33 U/L (16-61); Albumin, Serum 3.4 g/dL (3.2-5.0); Alkaline Phosphatase 99 U/L (45-117); Anion Gap 5 (5-15); BUN 16 mg/dL (7-18); BUN/Creat Ratio 19.3 RATIO (10-20); Calcium,Total 8.1 mg/dL (8.5-10.1); Chloride 113 mmol/L (98-107); Creatinine, Serum 0.83 mg/dL (0.70-1.30); EST Glomerular Filtration Rate 99 mL/min (>60); Est Glom Filt Rate - Afr Amer 119 mL/min (>60); Estimated Creatinine Clearance 85.39 ml/min; Globulin 2.8 g/dL (2.2-4.2); Glucose 169 mg/dL (74-106); Lipase 144 U/L (73-393); Potassium 3.6 mmol/L (3.5-5.1); Protein, Total 6.2 g/dL (6.4-8.2); Sodium Level 144 mmol/L (136-145)
--- NOTE | 2021-07-12 20:33 | ED.VIS.GI ---
HPI HPI - GI History of Present Illness Chief Complaint: Abd Pain Narrative Narrative: 56-year-old male presenting for evaluation of abdominal pain. When asked to point to the area abdominal pain he points to the right inguinal fold. He states this does not hurt right now that her earlier today and hurt last evening. Hurts more with movement. He states he is eating and drinking normally. He is making normal urine and stool. At times he states he does get constipated but also states he takes a stool softener laxative when he has a bowel movement. Patient is not having any nausea or vomiting. He states that he lost 50 pounds unintentionally from October or November to March and then has not put back on the weight. He relates this to a previous history of appendicitis which he had a appendectomy for and then states he had a secondary infection and had to have IV antibiotics. Patient has not had any fever, chills. He does state that he was concerned that his kidney had been him on his finger about a year ago and he believes the cat had hepatitis and he wants to make sure he does not have hepatitis. He does not have any right upper quadrant pain. He is not noticed any jaundice or scleral icterus. [facility] Medical History Abscess, hepatic Anxiety and depression Epilepsy Former smoker Glaucoma H/O drainage of abscess High cholesterol Home Medications dorzolamide-timolol 1 drp LEFT EYE QHS 12/19/20 [History Last Taken Unknown] phenytoin sodium extended [Dilantin Extended] 400 mg PO DAILY 12/19/20 [History Last Taken Unknown] phenytoin sodium extended [Dilantin Extended] 500 mg PO QODAY 12/19/20 [History Last Taken Unknown] latanoprost 1 drp LEFT EYE QPM 01/02/21 [History Last Taken 01/01/21] famciclovir 500 mg PO DAILY PRN PRN 04/23/21 [History Last Taken Unknown] temazepam 15 mg PO QHS PRN PRN 30 Days #30 cap 04/24/21 [Rx Last Taken Unknown] escitalopram oxalate 10 mg PO DAILY 05/06/21 [History Last Taken Unknown] Allergy/AdvReac Type Severity Reaction Status Date / Time bee venom protein (honey bee) Allergy Anaphylaxis Verified 07/12/21 19:13 Family History Mother Cancer Hx leukemia, age 89. Father CVA (cerebral vascular accident) age 84. Surgical History S/P appendectomy Social History household members: spouse Smoking Status: Former smoker how long ago did patient quit smoking: Smoked 0.75 ppd since [age] years old, quit in 2016. alcohol intake: never substance use type: does not use ROS ROS ED Constitutional Constitutional ED: Denies chills or fever(s) ENT ENT ED: Denies rhinorrhea or sore throat Cardiovascular Cardiovascular: Denies chest pain or palpitations Respiratory/Chest Respiratory/Chest: Denies cough, dyspnea or sputum Gastrointestinal Gastrointestinal: Reports abdominal pain; Denies diarrhea, nausea or vomiting Genitourinary Genitourinary ED: Denies dysuria or hematuria Musculoskeletal Musculoskeletal: Denies arthralgias or myalgias Integumentary Denies abscess or rash Neurologic Neurologic: Denies headache(s) or weakness EXAM Physical Exam Const Vital Signs: 07/12/21 19:10 07/12/21 21:09 Temperature 96.4 F L Temperature Source Temporal Pulse Rate 80 Respiratory Rate 16 18 Blood Pressure 109/67 Blood Pressure Mean 81 Pulse Ox 97 Oxygen Delivery Method Room Air Positive well nourished General Appearance ED: NAD; Negative for pallor HEENT Reports moist mucous membranes normocephalic and atraumatic Eyes PERRL and EOMs intact bilaterally Resp normal respiratory effort and clear to auscultation bilaterally Cardio regular rate and regular rhythm GI non-tender and non-distended Auscultation: normoactive bowel sounds Palpation: soft Back/Spine no CVA tenderness Neuro CN's II-XII intact bilaterally, moves all extremities and no sensory deficits noted Sensorium / Orientation: alert, oriented to person, oriented to place and oriented to time Motor Exam: strength 5/5 throughout Psych mental status grossly normal Skin General Skin Exam: Negative for jaundice or pallor MDM MDM MDM Narrative Medical decision making narrative: Patient presenting with abdominal pain, however when I ask him where he localized the pain he states that in the right inguinal fold. He does not have any tenderness here on examination. There is no mass. There is no swelling. Patient was able to briskly step up out of bed and turn and twist and has no pain with movement. I obtained lab work and his CBC shows that he is leukopenic and lymphopenic however this is consistent with his previous blood work. His hemoglobin hematocrit are stable. Platelets are normal. Renal function and electrolytes are normal. LFTs are normal so I do not believe the patient contracted any hepatitis from his cat a year ago. His urinalysis is negative for infection. I looked back to the medical record and saw that he was here a couple of times Dilantin toxicity I did order a Dilantin level. Patient does not appear to be confused. Also noted in the medical record was the patient was recently admitted for anxiety and depression issues. [facility]. He is not stating he has any problems with these today. He has follow-up and is on medications for this. Since his blood work is normal and his abdominal exam is benign I do not believe he needs a CT scan. Patient's Dilantin level was slightly elevated at 20.7. I spoke with his primary care provider who recommended him holding a dose and make an appointment for follow-up so that he can recheck his Dilantin levels. Patient acknowledged understanding instructions. He is discharged home in stable condition. Lab Data Attestation: I reviewed the patient's lab results. Labs: Laboratory Results - last 24 hr 07/12/21 07/12/21 07/12/21 19:10 19:30 19:30 WBC 4.2 L RBC 4.40 L Hgb 14.3 Hct 41.5 MCV 94.3 H MCH 32.5 H MCHC 34.5 RDW Std Deviation 45.3 H RDW Coeff of Darren 13.2 Plt Count 183 MPV 10.1 Immature Gran % (Auto) 0.200 Neut % (Auto) 36.3 L Lymph % (Auto) 50.7 H Ingham % (Auto) 9.5 Eos % (Auto) 2.8 Baso % (Auto) 0.5 Absolute Neuts (auto) 1.5 L Absolute Lymphs (auto) 2.14 Nucleated RBC % 0 Sodium 144 Potassium 3.6 Chloride 113 H Carbon Dioxide 26.0 Anion Gap 5 BUN 16 Creatinine 0.83 Estim Creat Clear Calc 85.39 Est GFR (MDRD) Af Amer 119 Est GFR (MDRD) Non-Af 99 BUN/Creatinine Ratio 19.3 Glucose 169 H Calcium 8.1 L Total Bilirubin 0.20 AST 21 ALT 33 Alkaline Phosphatase 99 Total Protein 6.2 L Albumin 3.4 Globulin 2.8 Albumin/Globulin Ratio 1.2 Lipase 144 Urine Color Yellow Urine Clarity Clear Urine pH 5.0 Ur Specific [place]on 1.020 Urine Protein 15 H Urine Glucose (UA) Normal Urine Ketones Negative Urine Occult Blood 25 H Urine Nitrite Negative Urine Bilirubin Negative Urine Urobilinogen 1 H Ur Leukocyte Esterase 25 H Urine RBC 0-5 SEEN Urine WBC 0-5 SEEN Ur Squamous Epith Cells 0 SEEN Urine Bacteria 0 SEEN Urine Mucus RARE Phenytoin 07/12/21 19:30 WBC RBC Hgb Hct MCV MCH MCHC RDW Std Deviation RDW Coeff of Darren Plt Count MPV Immature Gran % (Auto) Neut % (Auto) Lymph % (Auto) Ingham % (Auto) Eos % (Auto) Baso % (Auto) Absolute Neuts (auto) Absolute Lymphs (auto) Nucleated RBC % Sodium Potassium Chloride Carbon Dioxide Anion Gap BUN Creatinine Estim Creat Clear Calc Est GFR (MDRD) Af Amer Est GFR (MDRD) Non-Af BUN/Creatinine Ratio Glucose Calcium Total Bilirubin AST ALT Alkaline Phosphatase Total Protein Albumin Globulin Albumin/Globulin Ratio Lipase Urine Color Urine Clarity Urine pH Ur Specific Easton Urine Protein Urine Glucose (UA) Urine Ketones Urine Occult Blood Urine Nitrite Urine Bilirubin Urine Urobilinogen Ur Leukocyte Esterase Urine RBC Urine WBC Ur Squamous Epith Cells Urine Bacteria Urine Mucus Phenytoin 20.7 H Discharge Plan Triage Chief Complaint: Abd Pain ED Provider: Virgilio Scanlon Dx/Rx/DC Orders Instructions: ED Abdominal Pain Unkn Cause Male... Prescriptions: No Action phenytoin sodium extended [Dilantin Extended] 100 mg Capsule 500 mg PO QODAY RF: 0 phenytoin sodium extended [Dilantin Extended] 100 mg Capsule 400 mg PO DAILY RF: 0 dorzolamide-timolol 22.3-6.8 mg/mL Drops 1 drp LEFT EYE QHS RF: 0 latanoprost 0.005 % Drops 1 drp LEFT EYE QPM RF: 0 famciclovir 500 mg tablet 500 mg PO DAILY PRN PRN (Reason: herpes) RF: 0 temazepam 15 mg Capsule 15 mg PO QHS PRN PRN (Reason: Insomnia) 30 Days Qty: 30 RF: 0 escitalopram oxalate 10 mg Tablet 10 mg PO DAILY RF: 0 Primary Care Provider: Rashawn Andino Referrals: Rashawn Andino MD [Primary Care Provider] - Activity Restrictions/Additional Instructions: I spoke with Dr. Andino. He recommended holding 1 dose of your Dilantin. He wants you to schedule an appointment for follow-up and rechecking of your Dilantin levels. We did not find a source for your abdominal pain today but your blood work was normal. Please make sure you follow-up with your primary care provider. Disposition Disposition: Home, Self Care
[2021-07-12 20:34] LABS: Mucous, Urine RARE /hpf (<or=2+); Red Blood Cells-Urine 0-5 SEEN /hpf (0-5); White Blood Cells 0-5 SEEN /hpf (0-5)
[2021-07-12 20:42] LABS: Phenytoin (Dilantin) Level 20.7 mL (10.0-20.0)
[2021-07-12 21:09] VITALS: RESP 18
[2021-07-12 21:47] VITALS: BP 107/68; PULSE 77; RESP 16; O2SAT 99
== END 2021-07-12 21:48 | disposition home or self-care (01) ==
PROVIDERS: Emergency Provider Student in an Organized Health Care Education/Training Program; PCP Family Medicine; Visit Provider Student in an Organized Health Care Education/Training Program
DX: R10.9 Unspecified abdominal pain (principal); G40.909 Epilepsy, unspecified, not intractable, without status epilepticus; Z90.49 Acquired absence of other specified parts of digestive tract; Z79.899 Other long term (current) drug therapy; Z87.891 Personal history of nicotine dependence
CPT/HCPCS: 80053; 80185; 81001; 83690; 85025; 96360; 99283; J7030; A4216